=== PATIENT | female | born 1975 | race Caucasian/White ===

== ENCOUNTER → 2016-07-29 | Outpatient (CLI) | payer BC ==
--- NOTE | 2016-07-30 06:35 | US ---
EXAMINATION TYPE: US thyroid st tissue head/neck DATE OF EXAM: 07/29/2016 3:51 PM COMPARISON: 12/21/2014. 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 F/U to previous TECHNIQUE: Multiple sonographic images of the thyroid gland are obtained. FINDINGS: Right Lobe: 5.1 x 1.8 x 2.0 cm Left Lobe: 5.2 x 1.9 x 2.0 cm Isthmus Thickness: 0.6 cm Overall Parenchyma: Markedly heterogeneous. NODULES RIGHT: # of nodules measured on right: 1 1. 1.1 X 0.7 x 0.9 cm echogenic solid nodule at the mid pole with well-defined margins; This nodule is wider than tall and shows intranodular vascularity. Prior size: 1.2 x 1.0 x 1.0 cm LEFT: # of nodules measured on left: 1 1. 1.1 X 0.7 x 1.2 cm echogenic solid nodule at the lower pole with well-defined margins; This nod ule is wider than tall and shows intranodular vascularity. Prior size: 1.2 x 0.6 x 1.2 cm ISTHMUS: # of nodules measured in the isthmus: 0 Bilateral neck scanned, no abnormal lymphadenopathy noted. IMPRESSION: 1. Marked glandular heterogeneity could reflect goiter or diffuse thyroiditis. 2. A stable solid nodule within each lobe measuring up to 1.2 cm on the left and 1.1 cm on the right.
== END | disposition home or self-care (01) ==
LOC: RADUSWWP 15:49
PROVIDERS: ATTEND Internal Medicine
DX: E04.2 Nontoxic multinodular goiter (principal)
CPT/HCPCS: 76536

== ENCOUNTER → 2016-12-10 | Outpatient (CLI) | payer BC | END | disposition home or self-care (01) | LOC: LABWHC1 13:08 | PROVIDERS: ATTEND Physician Assistant | DX: E03.9 Hypothyroidism, unspecified (principal) | CPT/HCPCS: 36415; 84439; 84443 ==

== ENCOUNTER → 2016-12-16 | Outpatient (CLI) | payer BC ==
--- NOTE | 2016-12-16 10:29 | MM ---
Reason for exam: screening (asymptomatic). Baseline mammogram. History: Patient history of other cancer and had first child at age 34. Took hormonal contraceptives beginning at age 41. Physical Findings: Nurse did not find any significant physical abnormalities on exam. MG Screening Mammo w CAD Bilateral CC and MLO view(s) were taken. The breast tissue is heterogeneously dense. This may lower the sensitivity of mammography. There is no discrete abnormality. These results were verbally communicated with the patient and result sheet given to the patient on 12/16/16. ASSESSMENT: Negative, BI-RAD 1 RECOMMENDATION: Routine screening mammogram of both breasts in 1 year.
== END | disposition home or self-care (01) ==
LOC: RADMAMWWP 09:35
PROVIDERS: ATTEND Obstetrics & Gynecology
DX: Z12.31 Encounter for screening mammogram for malignant neoplasm of breast (principal)

== ENCOUNTER → 2017-03-03 | Outpatient (CLI) | payer BC ==
[2017-03-03 16:30] LABS: Basophils # (A) 0.1 k/uL (0-0.2); Basophils % (A) 1 %; CH 29.3; CHCM 33.1; Eosinophils # (A) 0.2 k/uL (0-0.7); Eosinophils % (A) 3 %; HCT 37.7 % (34.0-46.0); HDW 2.63; HGB 12.4 gm/dL (11.4-16.0); Luc # (Auto) 0.13; Luc % (Auto) 2; Lymphocytes # (A) 1.4 k/uL (1.0-4.8); Lymphocytes % (A) 23 %; MCH 29.2 pg (25.0-35.0); MCHC 32.8 g/dL (31.0-37.0); Mean Platelet Volume 7.7; Monocytes # (A) 0.4 k/uL (0-1.0); Monocytes % (A) 6 %; Neutrophils % (A) 65 %; RBC 4.24 m/uL (3.80-5.40); RDW 13.3 % (11.5-15.5); WBC 6.1 k/uL (3.8-10.6); WBC (Perox) 5.82
== END | disposition home or self-care (01) ==
LOC: LABPAT 14:42
PROVIDERS: ATTEND Obstetrics & Gynecology
DX: Z01.812 Encounter for preprocedural laboratory examination (principal); N93.8 Other specified abnormal uterine and vaginal bleeding; N92.0 Excessive and frequent menstruation with regular cycle
CPT/HCPCS: 85025

== ENCOUNTER 2017-03-17 06:29 | Day surgery (SDC) | payer BC ==
[2017-03-12 11:37] VITALS: BMI 36.5
[~2017-03-17 06:29] MED LIST: DEXAMETHASONE SOD PHOSPHATE 10 MG/ML 1 ML VIAL IV ONE; LACTATED RINGERS 1,000 ML IV SCH; MIDAZOLAM 2 MG/2 ML VIAL IV PRN; ONDANSETRON 4 MG/2 ML VIAL IVP ONE; Pre Op ABX Message 1 EACH MISC MISCELLANE ONE; SCOPOLAMINE 1.5MG/72HR PATCH TRANSDERM ONE
[2017-03-17] MEDS ORDERED: LIDOCAINE 1% 20 ML VIAL (10MG/ML) FOR IV START INTRADERMA ONE (07:03)
[2017-03-17] MEDS ORDERED: PROPOFOL 10 MG/ML 20 ML VIAL IV ONE (07:36)
[2017-03-17] MEDS ORDERED: MIDAZOLAM 2 MG/2 ML VIAL ONE (07:36)
[2017-03-17] MEDS ORDERED: fentaNYL (PF) 50 MCG/ML 2 ML AMP ONE (07:36)
[2017-03-17] MEDS ORDERED: LIDOCAINE 1% INJ 10MG/ML (20 ML MDV) ONE (07:36)
[2017-03-17] MEDS ORDERED: KETOROLAC 30 MG/ML 1 ML VIAL ONE (07:36)
[2017-03-17] MEDS ORDERED: IBUPROFEN 600 MG TAB PO PRN (07:42)
[2017-03-17] MEDS ORDERED: METOCLOPRAMIDE 5 MG/ML 2 ML VIAL IVP PRN (07:42)
[2017-03-17] MEDS ORDERED: ONDANSETRON 4 MG/2 ML VIAL IVP PRN (07:42)
[2017-03-17] MEDS ORDERED: diphenhydrAMINE 50 MG/ML 1 ML VIAL IVP PRN (07:42)
[2017-03-17] MEDS ORDERED: SIMETHICONE 80 MG CHEWABLE PO PRN (07:42)
[2017-03-17] MEDS ORDERED: KETOROLAC 30 MG/ML 1 ML VIAL IVP PRN (07:42)
[2017-03-17] MEDS ORDERED: Acetaminophen-Codeine 300-30mg TAB PO PRN ×2 (07:42)
[2017-03-17] MEDS ORDERED: LACTATED RINGERS 1,000 ML IV SCH (07:45)
--- NOTE | 2017-03-17 08:12 | P.OP ---
Date of Procedure: 03/17/17 Preoperative Diagnosis: #1. Dysfunctional uterine bleeding #2. Menorrhagia Postoperative Diagnosis: Same Procedure(s) Performed: #1. Diagnostic hysteroscopy #2. Endometrial curettage #3. NovaSure endometrial ablation Anesthesia: other (Gen. by face mask) Surgeon: Chai Cm Estimated Blood Loss (ml): 5 IV fluids (ml): 400 Urine output (ml): 20 Pathology: other Condition: stable (Endometrial curettings) Disposition: PACU Operative Findings: Preoperative pelvic examination demonstrated a roughly 4-5 week acutely anteverted mobile normal shaped uterus with normal adnexa bilaterally. Intraoperatively, the cervix measured approximately 4 synovators well uterus sounded to 9 cm. Using the hysteroscope, there was noted to be a fair amount of shaggy endometrial tissue in the fundal portion of the uterus. The bilateral tubal ostia were seen as result of the amount of tissue noted, curettage was carried out with the curettings sent to pathology for diagnoses. The settings for the NovaSure tool were a length of 5.0 cm, a width of 4.4 cm, a total power of 121 W, and was followed by a total run time of 78 seconds after which time the base unit read "procedure complete." The postprocedural result appeared to be excellent. The patient is a potential candidate for vaginal hysterectomy should become necessary in the future. Description of Procedure: The patient was prepped and draped in usual fashion after general anesthesia was administered by the anesthesiologist. A weighted speculum was placed and the bladder was drained of approximately 20 mL of clear rafal urine. A single- tooth tenaculum was placed on the anterior lip of the cervix and the cervix and uterus sounded with the measurements as noted above, uterine length of 9 cm and cervical length of 4 cm. Serial dilation was carried out to admit the diagnostic hysteroscope which was placed to the fundus of the uterus. The bilateral tubal ostia were seen but viewing was difficult secondary to blood floating in the fluid as well as a fair amount of shaggy tissue. Once adequate hysteroscopy been carried out, the scope was set aside and further dilation carried out to admit a small sharp curette which was utilized to circumferentially curet the endometrial cavity onto a Telfa placed in the vagina. The specimen was sent to pathology for diagnoses. The NovaSure tool was then placed in the endometrial cavity, opened, and seated well. The settings for the tool were as noted above. The cavity check was attempted and passed without difficulty. The tool was enabled and the run was started. After a total run time of 78 seconds, the in a disengaged and the base unit read "procedure complete." The tool was closed, removed, and discarded. The diagnostic scope was replaced into the endometrial cavity with the excellent result noted above. Allis her mentation was then removed. One tenaculum point was bleeding and was made hemostatic with pressure. Estimated blood loss for the entire case was approximate 5 mL. There were no complications. All sponge , instrument, and needle counts were correct. The patient tolerated the procedure well and proceeded to the recovery room in stable condition.
[2017-03-17 08:22] VITALS: TEMP 96.9
[2017-03-17] MEDS: HYDROmorphone 0.5 MG/0.5 ML SYRINGE IVP PRN ×2 (08:35→08:42)
[2017-03-17] MEDS ORDERED: LACTATED RINGERS 1,000 ML IV ONE (08:54)
[2017-03-17 09:10] VITALS: RESP 18
[2017-03-17 09:40] VITALS: BP 152/94; PULSE 69
== END 2017-03-17 10:07 | disposition home or self-care (01) ==
LOC: OR 06:29
PROVIDERS: ATTEND Obstetrics & Gynecology
DX: N93.8 Other specified abnormal uterine and vaginal bleeding (principal); N92.0 Excessive and frequent menstruation with regular cycle; E06.3 Autoimmune thyroiditis; Z79.3 Long term (current) use of hormonal contraceptives; Z79.899 Other long term (current) drug therapy; Z88.1 Allergy status to other antibiotic agents; Z88.2 Allergy status to sulfonamides
CPT/HCPCS: 81025; 88305; 58563; J2250; J1100; J2405; J2001; J3010; J1885; J2704; J1170

== ENCOUNTER → 2017-09-21 | Outpatient (CLI) | payer BC ==
[2017-09-21 14:23] LABS: T4, Free (Free Thyroxine) 1.04 ng/dL (0.78-2.19)
== END | disposition home or self-care (01) ==
LOC: LABWHC1 12:59
PROVIDERS: ATTEND Internal Medicine
DX: E03.9 Hypothyroidism, unspecified (principal)
CPT/HCPCS: 36415; 84439; 84443; 84481

== ENCOUNTER → 2018-08-24 | Outpatient (CLI) | payer BC ==
--- NOTE | 2018-08-24 17:28 | CONS ---
CONSULTATION REASON FOR CONSULTATION: This is a consultation note for sleep apnea. This is a 43-year-old, obese female patient who is coming in due to concerns of obstructive sleep apnea. Her story however is a bit more complicated than plain sleep apnea. The patient has had issues with chronic anxiety and depression. She has had difficulties in initiating and maintaining sleep. In addition, this was mainly attributed to her increased level of anxiety over the years. The patient had been treating herself with Benadryl for quite some time. Subsequently she was started on Zoloft at a dose of 100 mg p.o. daily which improved her level of anxiety and depression. For now, the patient is averaging a good 6-7 hours of sleep. She thinks that she needs to sleep more and for that reason, she has been going to bed early at around 8:00 pm. She gets out of bed around 7:00 am. Obviously she has difficulties with sleep initiation. She snores and she has been told to quit breathing at night. She has been feeling tired and fatigued and sleepy during the day. A bit restless in lower extremities. Has symptoms of nocturia. Current Gosport Score is at 6. She has gained 20 pounds over the past 1 year. She was referred for a sleep apnea evaluation and treatment. PAST MEDICAL HISTORY: 1. History of chronic anxiety and depression. 2. Hypothyroidism as the patient has had previous history of Vianey's thyroiditis. 3. History of tachycardia improved with the treatment of metoprolol. PAST SURGICAL HISTORY: Includes uterine ablation. DRUG ALLERGIES: Not known. OUTPATIENT MEDICATION LIST: Includes Zoloft 100 mg p.o. daily, levothyroxine 75 mcg p.o. daily, metoprolol 50 mg p.o. daily. SOCIAL HISTORY: Nonsmoker. No history of alcohol. No history of IV drugs. FAMILY HISTORY: Negative for sleep apnea. REVIEW OF SYSTEMS: 12-point review of system was done. Positive findings are mentioned above in the history of present illness. PHYSICAL EXAMINATION: BP is 150/92, pulse 60, respirations 16, temperature 97.7, saturation 96% on room air. Weight is 235, height is 5 feet 3 inches. Neck is 15 inches, Gosport score is 6 and BMI is 40.9. GENERAL APPEARANCE: Calm and comfortable. HEENT: Head is atraumatic, normocephalic. Neck is short, supple. There is crowding of posterior pharynx. There is no goiter or neck mass. LUNGS: Diminished breath sounds. Otherwise clear. HEART: Sounds are regular rate and rhythm. Normal S1, S2. No S3, S4. No murmurs. ABDOMEN: Soft, nontender. No organomegaly. EXTREMITIES: No edema. No cyanosis or clubbing. IMPRESSION: 1. Chronic hypersomnia, consider underlying obstructive sleep apnea. Based on symptoms and anatomic features. 2. History of insomnia probably related to chronic anxiety and depression. Improved with the initiation of Zoloft 100 mg p.o. daily. 3. Symptoms of sleep misconception. 4. Obesity with a BMI of 40.9. 5. Hypothyroidism. 6. History of sinus tachycardia improved with metoprolol. PLAN: Educated the patient about sleep hygiene. During this interview a lot of sleep hygiene issues were identified. The patient was asked to eliminate not to watch TV in her bedroom environment. She has been also having some sleep misconception where she thinks she needs to sleep longer number of hours and she was going to bed earlier. This needs to be eliminated and the patient need to go to sleep whenever she is feeling drowsy and sleepy. Typically would like her to go to bed around 11:00 pm. We will also tackled a lot of other issues related to sleep hygiene. Meanwhile there is still concern of obstructive sleep apnea. We will set up the patient for a screening polysomnogram. Continue taking Zoloft for anxiety and depression which has helped this patient considerably regarding her symptoms of insomnia. Continue Synthroid and thyroid levels are adequate. Will continue to follow. We will review the sleep study once complete and make further recommendations if CPAP therapy is needed in this patient. MMODL / IJN: [id number] /
== END | disposition home or self-care (01) ==
LOC: SLEEP 15:26
PROVIDERS: ATTEND Internal Medicine Critical Care Medicine
DX: G47.10 Hypersomnia, unspecified (principal); R06.83 Snoring; R35.1 Nocturia; F32.9 Major depressive disorder, single episode, unspecified; F41.9 Anxiety disorder, unspecified; E66.9 Obesity, unspecified; R53.83 Other fatigue; E06.3 Autoimmune thyroiditis; E03.9 Hypothyroidism, unspecified; R00.0 Tachycardia, unspecified; Z68.41 Body mass index [BMI] 40.0-44.9, adult; Z79.899 Other long term (current) drug therapy; Z98.890 Other specified postprocedural states
CPT/HCPCS: 99211

== ENCOUNTER → 2018-10-08 | Outpatient (CLI) | payer BC ==
--- NOTE | 2018-10-12 09:17 | MM ---
Reason for exam: screening (asymptomatic). Last mammogram was performed 1 year and 10 months ago. History: Patient history of other cancer and had first child at age 34. Took hormonal contraceptives beginning at age 41. Physical Findings: A clinical breast exam by your physician is recommended on an annual basis and results should be correlated with mammographic findings. MG Screening Mammo w CAD Bilateral CC and MLO view(s) were taken. XCCL view(s) were taken of the right breast. Prior study comparison: December 16, 2016, bilateral MG screening mammo w CAD. The breast tissue is heterogeneously dense. This may lower the sensitivity of mammography. There is no discrete abnormality. No significant changes when compared with prior studies. ASSESSMENT: Negative, BI-RAD 1 RECOMMENDATION: Routine screening mammogram of both breasts in 1 year.
== END ==
LOC: RADMAMWWP 07:52
PROVIDERS: ATTEND Internal Medicine
DX: Z12.31 Encounter for screening mammogram for malignant neoplasm of breast (principal)
CPT/HCPCS: 77067

== ENCOUNTER 2019-08-13 01:17 | Emergency (ER) | payer BC ==
[2019-08-13 01:27] VITALS: RESP 18
[2019-08-13] MEDS ORDERED: ONDANSETRON 4 MG/2 ML VIAL IVP STA (02:05)
[2019-08-13] MEDS ORDERED: SODIUM CHLORIDE 0.9% 1,000 ML IV STA (02:05)
--- NOTE | 2019-08-13 02:50 | ED ---
General Adult HPI - General Source: patient, RN notes reviewed, old records reviewed Mode of arrival: ambulatory Limitations: no limitations <Reece Layton - Last Filed: 08/13/19 18:00> <Neva Cary - Last Filed: 08/16/19 00:07> - General Chief complaint: Abdominal Pain Stated complaint: Pain right lower abdomen Time Seen by Provider: 08/13/19 01:31 - History of Present Illness Initial comments: 44-year-old female patient presents to ED for chief complaint of right lower quadrant pain. Patient was this began approximately 6 PM today. Also reports of nausea without emesis. Patient is status post tubal ligation. Denies any other complaints. Systemic: Pt denies fatigue, fever/chills, rash. Pt denies weakness, night sweats, weight loss. Neuro: Pt denies headache, visual disturbances, syncope or pre-syncope. HEENT: Pt denies ocular discharge or irritation, otalgia, rhinorrhea, pharyng itis or notable lymphadenopathy. Cardiopulmonary: Pt denies chest pain, SOB, heart palpitations, dyspnea on exertion. Abdominal/GI: Pt denies abdominal pain, n/v/d. : Pt denies dysuria, burning w/ urination, frequency/urgency. Denies new onset urinary or bowel incontinence. MSK: Pt denies myalgia, loss of strength or function in extremities. Neuro: Pt denies new onset weakness, paresthesias. (Reece Layton) - Related Data Home Medications Medication Instructions Recorded Confirmed Sertraline [Zoloft] 50 mg PO HS 03/12/17 08/13/19 Cyanocobalamin (Vitamin B-12) 1,000 mcg PO HS 10/02/17 08/13/19 [Vitamin B-12] Levothyroxine Sodium [Synthroid] 75 mcg PO HS 10/02/17 08/13/19 Vitamin D3(Unknown Dose) 4 tab PO HS 10/02/17 08/13/19 Metoprolol Succinate [Toprol XL] 25 mg PO DAILY 08/13/19 08/13/19 Previous Rx's Medication Instructions Recorded Cephalexin [Keflex] 500 mg PO BID #20 cap 08/13/19 Allergies Allergy/AdvReac Type Severity Reaction Status Date / Time Sulfa (Sulfonamide Allergy Rash/Hives Verified 08/13/19 01:27 Antibiotics) Review of Systems ROS Other: All systems not noted in ROS Statement are negative. <Reece Layton - Last Filed: 08/13/19 18:00> ROS Other: All systems not noted in ROS Statement are negative. <Neva Cary - Last Filed: 08/16/19 00:07> ROS Statement: Those systems with pertinent positive or pertinent negative responses have been documented in the HPI. Past Medical History Past Medical History: Hypertension, Supraventricular Tachycardia (SVT), Thyroid Disorder History of Any Multi-Drug Resistant Organisms: None Reported Past Surgical History: Tubal Ligation Past Psychological History: Depression Smoking Status: Never smoker Past Alcohol Use History: Occasional Past Drug Use History: None Reported <Reece Layton - Last Filed: 08/13/19 18:00> General Exam Limitations: no limitations <Reece Layton - Last Filed: 08/13/19 18:00> - General Exam Comments Initial Comments: Constitutional: NAD, AOX3, Pt has pleasant affect. HEENT: NC/AT, trachea midline, neck supple, no lymphadenopathy. Posterior pharynx non erythematous, without exudates. External ears appear normal, without discharge. Mucous membranes moist. Eyes PERRLA, EOM intact. There is no scleral icterus. No pallor noted. Cardiopulmonary: RRR, no murmurs, rubs or gallops, no JVD noted. Lungs CTAB in anterior and posterior bee. No peripheral edema. Abdominal exam: Abdomen soft and non-distended. Abdomen mildly tender to palpation right lower quadrant region. Other areas of abdominal tenderness. No guarding or rigidity.. Bowel sounds active in LLQ. No hepatosplenomegaly. No ecchymosis Neuro: CN II-XII grossly intact. No nuchal rigidity. No raccon eyes, no adler sign, no hemotympanum. No cervical spinal tenderness. MSK: No posterior calf tenderness bilaterally, homans sign negative bilaterally. Posterior tibialis and radial pulse +2 bilaterally. Sensation intact in upper and lower extremities. Full active ROM in upper and lower extremities, 5/5 stregnth. (Reece Layton) Course Vital Signs 08/13/19 08/13/19 01:23 05:29 Temperature 98.2 F 97.9 F Pulse Rate 79 73 Respiratory 18 18 Rate Blood Pressure 143/83 116/86 O2 Sat by Pulse 100 97 Oximetry Medical Decision Making - Lab Data Result diagrams: 08/13/19 03:13 08/13/19 03:13 <Reece Layton - Last Filed: 08/13/19 18:00> - Lab Data Result diagrams: 08/13/19 03:13 08/13/19 03:13 <Neva Cary - Last Filed: 08/16/19 00:07> - Medical Decision Making 44-year-old female patient presents ED chief complaint right lower quadrant abdominal pain. Patient status post tubal ligation. Physical exam is fully mild right lower quadrant tenderness. Laboratory investigations revealed a positive urinary tract infection. CT abdomen and pelvis displayed a large ovarian cyst. Patient signed out to Dr. Cary pending ultrasound. (Reece Layton) The patient was signed out to me pending ultrasound. Ultrasound does demonstrate a right-sided ovarian cyst, measuring 3.8 mm in size. Concern for hemorrhagic cyst. No signs of ovarian torsion. I discussed the laboratory studies and imaging results with the patient. She states her pain is improved at this time. She will be discharged home and is told to take Motrin and Tylenol for pain. She'll be given a prescription for Keflex for clinical pyelonephritis. Informed her that she needs to follow up with her OB and have a repeat ultrasound performed to evaluate her cyst. If she has any new or worsen ing symptoms she should return to the emergency room. (Neva Cary) - Lab Data Lab Results 08/13/19 08/13/19 08/13/19 Range/Units 03:13 03:13 03:13 WBC 7.9 (3.8-10.6) k/uL RBC 4.49 (3.80-5.40) m/uL Hgb 13.8 (11.4-16.0) gm/dL Hct 41.4 (34.0-46.0) % MCV 92.0 (80.0-100.0) fL MCH 30.6 (25.0-35.0) pg MCHC 33.3 (31.0-37.0) g/dL RDW 11.8 (11.5-15.5) % Plt Count 228 (150-450) k/uL Neutrophils % 68 % Lymphocytes % 22 % Monocytes % 5 % Eosinophils % 3 % Basophils % 0 % Neutrophils # 5.4 (1.3-7.7) k/uL Lymphocytes # 1.8 (1.0-4.8) k/uL Monocytes # 0.4 (0-1.0) k/uL Eosinophils # 0.2 (0-0.7) k/uL Basophils # 0.0 (0-0.2) k/uL Sodium 137 (137-145) mmol/L Potassium 4.1 (3.5-5.1) mmol/L Chloride 103 (98-107) mmol/L Carbon Dioxide 24 (22-30) mmol/L Anion Gap 10 mmol/L BUN 15 (7-17) mg/dL Creatinine 0.80 (0.52-1.04) mg/dL Est GFR (CKD-EPI)AfAm >90 (>60 ml/min/1.73 sqM) Est GFR (CKD-EPI)NonAf >90 (>60 ml/min/1.73 sqM) Glucose 93 (74-99) mg/dL Plasma Lactic Acid Omega 1.1 (0.7-2.0) mmol/L Calcium 9.6 (8.4-10.2) mg/dL Total Bilirubin 0.5 (0.2-1.3) mg/dL AST 24 (14-36) U/L ALT 18 (4-34) U/L Alkaline Phosphatase 62 (38-126) U/L Total Protein 7.3 (6.3-8.2) g/dL Albumin 4.3 (3.5-5.0) g/dL Lipase 177 (23-300) U/L Urine Color Urine Appearance (Clear) Urine pH (5.0-8.0) Ur Specific [place] (1.001-1.035) Urine Protein (Negative) Urine Glucose (UA) (Negative) Urine Ketones (Negative) Urine Blood (Negative) Urine Nitrite (Negative) Urine Bilirubin (Negative) Urine Urobilinogen (<2.0) mg/dL Ur Leukocyte Esterase (Negative) Urine RBC (0-5) /hpf Urine WBC (0-5) /hpf Ur Squamous Epith Cells (0-4) /hpf Urine Bacteria (None) /hpf Urine Mucus (None) /hpf 08/13/19 Range/Units 03:13 WBC (3.8-10.6) k/uL RBC (3.80-5.40) m/uL Hgb (11.4-16.0) gm/dL Hct (34.0-46.0) % MCV (80.0-100.0) fL MCH (25.0-35.0) pg MCHC (31.0-37.0) g/dL RDW (11.5-15.5) % Plt Count (150-450) k/uL Neutrophils % % Lymphocytes % % Monocytes % % Eosinophils % % Basophils % % Neutrophils # (1.3-7.7) k/uL Lymphocytes # (1.0-4.8) k/uL Monocytes # (0-1.0) k/uL Eosinophils # (0-0.7) k/uL Basophils # (0-0.2) k/uL Sodium (137-145) mmol/L Potassium (3.5-5.1) mmol/L Chloride (98-107) mmol/L Carbon Dioxide (22-30) mmol/L Anion Gap mmol/L BUN (7-17) mg/dL Creatinine (0.52-1.04) mg/dL Est GFR (CKD-EPI)AfAm (>60 ml/min/1.73 sqM) Est GFR (CKD-EPI)NonAf (>60 ml/min/1.73 sqM) Glucose (74-99) mg/dL Plasma Lactic Acid Omega (0.7-2.0) mmol/L Calcium (8.4-10.2) mg/dL Total Bilirubin (0.2-1.3) mg/dL AST (14-36) U/L ALT (4-34) U/L Alkaline Phosphatase (38-126) U/L Total Protein (6.3-8.2) g/dL Albumin (3.5-5.0) g/dL Lipase (23-300) U/L Urine Color Dark Brown Urine Appearance Cloudy H (Clear) Urine pH 5.5 (5.0-8.0) Ur Specific [place] 1.021 (1.001-1.035) Urine Protein Negative (Negative) Urine Glucose (UA) Negative (Negative) Urine Ketones Negative (Negative) Urine Blood Negative (Negative) Urine Nitrite Positive H (Negative) Urine Bilirubin 1+ H (Negative) Urine Urobilinogen 3.0 (<2.0) mg/dL Ur Leukocyte Esterase Large H (Negative) Urine RBC 4 (0-5) /hpf Urine WBC 45 H (0-5) /hpf Ur Squamous Epith Cells 17 H (0-4) /hpf Urine Bacteria Rare H (None) /hpf Urine Mucus Rare H (None) /hpf Disposition <Reece Layton - Last Filed: 08/13/19 18:00> Is patient prescribed a controlled substance at d/c from ED?: No Time of Disposition: 05:15 <Neva Cary - Last Filed: 08/16/19 00:07> Clinical Impression: Hemorrhagic cyst of right ovary, UTI (urinary tract infection) Disposition: HOME SELF-CARE Condition: Stable Instructions (If sedation given, give patient instructions): Ovarian Cyst (ED), Urinary Tract Infection in Women (ED) Additional Instructions: Please follow up with your primary care doctor in 2-4 days. I recommend a follow-up with her AUTOM[employer] in 2 months to have a repeat ultrasound. Return to the emergency room for any new or worsening symptoms Prescriptions: Cephalexin [Keflex] 500 mg PO BID #20 cap Referrals: Dada Rivas MD [Primary Care Provider] - 1-2 days
[2019-08-13 03:23] LABS: Basophils % (A) 0 %; Eosinophils # (A) 0.2 k/uL (0-0.7); Eosinophils % (A) 3 %; HCT 41.4 % (34.0-46.0); HGB 13.8 gm/dL (11.4-16.0); Lymphocytes # (A) 1.8 k/uL (1.0-4.8); Lymphocytes % (A) 22 %; MCH 30.6 pg (25.0-35.0); MCHC 33.3 g/dL (31.0-37.0); Mean Platelet Volume 7.3; Monocytes # (A) 0.4 k/uL (0-1.0); Monocytes % (A) 5 %; Neutrophils # (A) 5.4 k/uL (1.3-7.7); Neutrophils % (A) 68 %; Platelet Count 228 k/uL (150-450); RBC 4.49 m/uL (3.80-5.40); RDW 11.8 % (11.5-15.5); WBC 7.9 k/uL (3.8-10.6)
[2019-08-13 03:27] LABS: Appearance,Urine Cloudy (Clear); Bacteria,Urine Rare /hpf; Bilirubin,Urine 1+ (Negative); Blood,Urine Negative (Negative); Color,Urine Dark Brown; Glucose,Urine (UA) Negative (Negative); Ketones,Urine Negative (Negative); Leukocyte Esterase,Urine Large (Negative); Mucus,Urine Rare /hpf; Nitrite,Urine Positive (Negative); PH, Urine 5.5 (5.0-8.0); Protein,Urine Negative (Negative); RBC,Urine 4 /hpf (0-5); Specific Gravity,Urine 1.021 (1.001-1.035); Squamous Epithelial Cell,Urine 17 /hpf (0-4); WBC,Urine 45 /hpf (0-5)
[2019-08-13 03:36] LABS: ALT 18 U/L (4-34); AST 24 U/L (14-36); African American GFR (CKD) >90 (>60 ml/min/1.73 sqM); Albumin 4.3 g/dL (3.5-5.0); Alkaline Phosphatase 62 U/L (38-126); Anion Gap 10 mmol/L; Blood Urea Nitrogen 15 mg/dL (7-17); Calcium 9.6 mg/dL (8.4-10.2); Carbon Dioxide 24 mmol/L (22-30); Chloride 103 mmol/L (98-107); Glucose 93 mg/dL (74-99); Non-African American GFR(CKD) >90 (>60 ml/min/1.73 sqM); Potassium 4.1 mmol/L (3.5-5.1); Sodium 137 mmol/L (137-145); Total Bilirubin 0.5 mg/dL (0.2-1.3); Total Protein 7.3 g/dL (6.3-8.2)
--- NOTE | 2019-08-13 03:36 | CT ---
EXAMINATION TYPE: CT abdomen pelvis w con DATE OF EXAM: 08/13/2019 COMPARISON: None HISTORY: RLQ pain CT DLP: 1869.8 mGycm Automated exposure control for dose reduction was used. CONTRAST: Performed with IV Contrast, patient injected with 100 mL of Isovue 300. Multiple axial sections were obtained from the diaphragm to the floor the pelvis with intravenous con trast. The contrast was Isovue 100 mL. Lung bases are clear. There is no pleural effusion. There is mild subsegmental atelectasis right post erior lung base. Liver shows no focal defect. Bile ducts are not dilated. Liver spleen pancreas appea r normal. There are multiple calcified gallstones. Bile ducts are not dilated. There is no adrenal mass. Kidneys show satisfactory contrast opacification. There is no hydronephrosi s. Ureters are not dilated. There is normal excretion on the delayed images. There is no retroperiton eal adenopathy. Appendix is inferior and appears normal. There is no free fluid in the pelvis. Bladde r distends smoothly. There is no inguinal hernia. Uterus is anteverted. There is 4.4 cm cyst in the r ight adnexum consistent with ovarian cyst. There are clips from tubal ligation. There is no mesenteric edema. There is no ascites or free air. There is no sign of a bowel obstructio n. Lumbar vertebra have normal spacing and alignment. Posterior elements are intact. There is no comp ression fracture. Bony pelvis is intact. IMPRESSION: Normal appendix. Large cyst on the right ovary. Cholelithiasis.
[2019-08-13] MEDS ORDERED: cefTRIAXone IN SWFI 1,000 MG/10 ML SYRINGE IVP STA (03:42)
[2019-08-13] MEDS ORDERED: CEPHALEXIN 500MG STARTER PACK 4 CAP BTL PO STA (04:18)
--- NOTE | 2019-08-13 04:48 | US ---
EXAMINATION TYPE: US pelvic complete DATE OF EXAM: 08/13/2019 COMPARISON: NONE CLINICAL HISTORY: right adnexal pain large cyst. Right ovarian cyst seen on CT, also current UTI TECHNIQUE: TA. Transabdominal sonographic images of the pelvis were acquired. patient asked if we could try TA approach due to feeling of full bladder and pain. Date of LMP: 07/24/19 EXAM MEASUREMENTS: Uterus: 9.5 x 4.2 x 4.3 cm Endometrial Stripe: 0.5 cm Right Ovary: 3.6 x 3.8 x 3.6 cm Left Ovary: 2.2 x 1.8 x 1.7 cm 1. Uterus: Anteverted wnl 2. Endometrium: wnl 3. Right Ovary: appearance of a 3.8cm hemorrhagic cyst 4. Left Ovary: wnl Spectral, color and waveform doppler imaging shows good arterial and venous flow within the right o vary; there is no evidence for ovarian torsion. 5. Bilateral Adnexa: wnl 6. Posterior cul-de-sac: wnl IMPRESSION: Echogenic area with posterior enhancement consistent with complex cyst on the right ovary could be a hemorrhagic cyst. No evidence of ovarian torsion. Normal uterus.
[2019-08-13 05:30] VITALS: BP 116/86; PULSE 73; TEMP 97.9
== END 2019-08-13 05:30 | disposition home or self-care (01) ==
LOC: EC 01:17
DX: N39.0 Urinary tract infection, site not specified (principal); N83.201 Unspecified ovarian cyst, right side; E07.9 Disorder of thyroid, unspecified; I10 Essential (primary) hypertension; F32.9 Major depressive disorder, single episode, unspecified; Z79.890 Hormone replacement therapy; Z79.899 Other long term (current) drug therapy; Z88.2 Allergy status to sulfonamides
CPT/HCPCS: 36415; 80053; 83605; 83690; 85025; 81001; 87086; 93976; 76856; 74177; 99284; 96374; 96375; 96361 ×2; J2405; J0696; Q9967

== ENCOUNTER → 2019-08-17 | Outpatient (CLI) | payer BC ==
[2019-08-17 18:20] LABS: Hemoglobin A1C 4.9 % (4.0-6.0)
== END | disposition home or self-care (01) ==
LOC: LABWHC1 11:43
PROVIDERS: ATTEND Internal Medicine Endocrinology, Diabetes & Metabolism
DX: E03.8 Other specified hypothyroidism (principal); E55.9 Vitamin D deficiency, unspecified; E66.01 Morbid (severe) obesity due to excess calories; Z83.3 Family history of diabetes mellitus
CPT/HCPCS: 36415; 82306; 83036; 84443

== ENCOUNTER → 2019-08-23 | Outpatient (CLI) | payer BC ==
--- NOTE | 2019-08-24 07:32 | US ---
EXAMINATION TYPE: US thyroid st tissue head/neck DATE OF EXAM: 08/23/2019 COMPARISON: 07/29/2016 CLINICAL HISTORY: E04.2. GLAND SIZE: Right Lobe: 5.1 x 1.6 x 1.9 cm Overall Parenchyma: heterogenous Left Lobe: 4.6 x 2.0 x 1.5 cm Overall Parenchyma: heterogeneous Isthmus Thickness: 0.5 cm NODULES RIGHT: # of nodules measured on right: 1 1. 1.0 X 0.6 x 1.0 cm echogenic solid nodule at the mid pole with well-defined margins; . This nod ule is wider than tall and shows intranodular vascularity. Prior size: 1.1 x 0.7 x 0.9 cm LEFT: # of nodules measured on left: 1 1. 0.9 X 0.9 x 1.1 cm echogenic solid nodule at the lower pole with well-defined margins; . This n odule is wider than tall and shows intranodular vascularity. Prior size: 1.1 x 0.7 x 1.2 cm ISTHMUS: # of nodules measured in the isthmus: 0 Bilateral neck scanned, no evidence of lymphadenopathy. Gland is diffusely heterogeneous without normal tissue seen. Senior Product Engineer cannot be certain that the s edgar nodules are being measured as previous due to extensive heterogenous tissue. IMPRESSION: 1. The thyroid gland is diffusely heterogenous and the nodule seen on the prior exam are not definiti vely mean nodule seen on today's examination. However nodules in a similar location demonstrate no si gnificant interval growth. 2. Diffuse heterogeneity of the thyroid gland, consider thyroiditis.
== END | disposition home or self-care (01) ==
LOC: RADUSWWP 16:51
PROVIDERS: ATTEND Internal Medicine Endocrinology, Diabetes & Metabolism
DX: E04.1 Nontoxic single thyroid nodule (principal)
CPT/HCPCS: 76536

== ENCOUNTER 2019-11-09 15:57 | Emergency (ER) | payer BC ==
[2019-11-09] MEDS ORDERED: SODIUM CHLORIDE 0.9% 500 ML 500 ML IV STA (16:07)
[2019-11-09 16:13] VITALS: TEMP 98.2
--- NOTE | 2019-11-09 16:14 | ED ---
General Adult HPI - General Chief complaint: Arrhythmia/Palpitations Stated complaint: SVT Time Seen by Provider: 11/09/19 15:57 Source: patient, RN notes reviewed, old records reviewed Mode of arrival: EMS - History of Present Illness Initial comments: This is a 44-year-old female presents emergency Department with a past medical history of SVT. Patient states it happened once 10 years ago and once about a year ago. Patient states today she was just going about her daily routine and all of a sudden she can feel her heart racing was a little lightheaded and so EMS was called. When EMS arrived the patient's at 1 80 bpm and SVT. EMS administered adenosine and converted the patient immediately. Patient states she's not been drinking any more caffeine than normal. Patient denies any drug use. Patient denies any recent fever chills or cough per patient denies being ill lately patient denies being dehydrated. - Related Data Home Medications Medication Instructions Recorded Confirmed Sertraline [Zoloft] 50 mg PO HS 03/12/17 08/13/19 Cyanocobalamin (Vitamin B-12) 1,000 mcg PO HS 10/02/17 08/13/19 [Vitamin B-12] Levothyroxine Sodium [Synthroid] 75 mcg PO HS 10/02/17 08/13/19 Vitamin D3(Unknown Dose) 4 tab PO HS 10/02/17 08/13/19 Metoprolol Succinate [Toprol XL] 25 mg PO DAILY 08/13/19 08/13/19 Previous Rx's Medication Instructions Recorded Cephalexin [Keflex] 500 mg PO BID #20 cap 08/13/19 Allergies Allergy/AdvReac Type Severity Reaction Status Date / Time Sulfa (Sulfonamide Allergy Rash/Hives Verified 08/13/19 01:27 Antibiotics) Review of Systems ROS Statement: Those systems with pertinent positive or pertinent negative responses have been documented in the HPI. ROS Other: All systems not noted in ROS Statement are negative. Past Medical History Past Medical History: Hypertension, Supraventricular Tachycardia (SVT), Thyroid Disorder History of Any Multi-Drug Resistant Organisms: None Reported Past Surgical History: Tubal Ligation Past Psychological History: Depression Smoking Status: Never smoker Past Alcohol Use History: Occasional Past Drug Use History: None Reported General Exam - General Exam Comments Initial Comments: GENERAL: Patient is well-developed and well-nourished. Patient is nontoxic and well- hydrated and is in no acute distress. ENT: Neck is soft and supple. No significant lymphadenopathy is noted. Oropharynx is clear. Moist mucous membranes. Neck has full range of motion without eliciting any pain. EYES: The sclera were anicteric and conjunctiva were pink and moist. Extraocular movements were intact and pupils were equal round and reactive to light. Eyelid s were unremarkable. PULMONARY: Unlabored respirations. Good breath sounds bilaterally. No audible rales rhonchi or wheezing was noted. CARDIOVASCULAR: There is a regular rate and rhythm without any murmurs gallops or rubs. ABDOMEN: Soft and nontender with normal bowel sounds. SKIN: Skin is clear with no lesions or rashes and otherwise unremarkable. NEUROLOGIC: Patient is alert and oriented x3. Cranial nerves II through XII are grossly intact. Motor and sensory are also intact. Normal speech, volume and content. Symmetrical smile. MUSCULOSKELETAL: Normal extremities with adequate strength and full range of motion. LYMPHATICS: No significant lymphadenopathy is noted PSYCHIATRIC: Normal psychiatric evaluation. Course Vital Signs 11/09/19 16:11 Temperature 98.2 F Pulse Rate 95 Respiratory 18 Rate Blood Pressure 129/86 O2 Sat by Pulse 98 Oximetry Medical Decision Making - Medical Decision Making EKG shows normal sinus rhythm at 92 bpm IA interval 168 QRS is 92 QT interval 364 QTC is 450. Patient's EKG shows no ST segment elevation or depression. - Lab Data Result diagrams: 11/09/19 16:09 11/09/19 16:09 Lab Results 11/09/19 11/09/19 11/09/19 Range/Units 16:09 16:09 16:09 WBC 6.5 (3.8-10.6) k/uL RBC 4.72 (3.80-5.40) m/uL Hgb 14.3 (11.4-16.0) gm/dL Hct 44.7 (34.0-46.0) % MCV 94.7 (80.0-100.0) fL MCH 30.3 (25.0-35.0) pg MCHC 32.0 (31.0-37.0) g/dL RDW 12.2 (11.5-15.5) % Plt Count 236 (150-450) k/uL Neutrophils % 66 % Lymphocytes % 24 % Monocytes % 4 % Eosinophils % 3 % Basophils % 1 % Neutrophils # 4.3 (1.3-7.7) k/uL Lymphocytes # 1.6 (1.0-4.8) k/uL Monocytes # 0.3 (0-1.0) k/uL Eosinophils # 0.2 (0-0.7) k/uL Basophils # 0.1 (0-0.2) k/uL PT 10.4 (9.0-12.0) sec INR 1.0 (<1.2) APTT 23.2 (22.0-30.0) sec Sodium (137-145) mmol/L Potassium (3.5-5.1) mmol/L Chloride (98-107) mmol/L Carbon Dioxide (22-30) mmol/L Anion Gap mmol/L BUN (7-17) mg/dL Creatinine (0.52-1.04) mg/dL Est GFR (CKD-EPI)AfAm (>60 ml/min/1.73 sqM) Est GFR (CKD-EPI)NonAf (>60 ml/min/1.73 sqM) Glucose (74-99) mg/dL Calcium (8.4-10.2) mg/dL Magnesium (1.6-2.3) mg/dL Total Bilirubin (0.2-1.3) mg/dL AST (14-36) U/L ALT (4-34) U/L Alkaline Phosphatase (38-126) U/L Troponin I (0.000-0.034) ng/mL Total Protein (6.3-8.2) g/dL Albumin (3.5-5.0) g/dL TSH (0.465-4.680) mIU/L Urine Opiates Screen Not Detected (NotDetected) Ur Oxycodone Screen Not Detected (NotDetected) Urine Methadone Screen Not Detected (NotDetected) Ur Propoxyphene Screen Not Detected (NotDetected) Ur Barbiturates Screen Not Detected (NotDetected) U Tricyclic Antidepress Not Detected (NotDetected) Ur Phencyclidine Scrn Not Detected (NotDetected) Ur Amphetamines Screen Not Detected (NotDetected) U Methamphetamines Scrn Not Detected (NotDetected) U Benzodiazepines Scrn Not Detected (NotDetected) Urine Cocaine Screen Not Detected (NotDetected) U Marijuana (THC) Screen Not Detected (NotDetected) 11/09/19 11/09/19 Range/Units 16:09 16:09 WBC (3.8-10.6) k/uL RBC (3.80-5.40) m/uL Hgb (11.4-16.0) gm/dL Hct (34.0-46.0) % MCV (80.0-100.0) fL MCH (25.0-35.0) pg MCHC (31.0-37.0) g/dL RDW (11.5-15.5) % Plt Count (150-450) k/uL Neutrophils % % Lymphocytes % % Monocytes % % Eosinophils % % Basophils % % Neutrophils # (1.3-7.7) k/uL Lymphocytes # (1.0-4.8) k/uL Monocytes # (0-1.0) k/uL Eosinophils # (0-0.7) k/uL Basophils # (0-0.2) k/uL PT (9.0-12.0) sec INR (<1.2) APTT (22.0-30.0) sec Sodium 139 (137-145) mmol/L Potassium 3.7 (3.5-5.1) mmol/L Chloride 106 (98-107) mmol/L Carbon Dioxide 24 (22-30) mmol/L Anion Gap 9 mmol/L BUN 13 (7-17) mg/dL Creatinine 0.85 (0.52-1.04) mg/dL Est GFR (CKD-EPI)AfAm >90 (>60 ml/min/1.73 sqM) Est GFR (CKD-EPI)NonAf 85 (>60 ml/min/1.73 sqM) Glucose 108 H (74-99) mg/dL Calcium 9.1 (8.4-10.2) mg/dL Magnesium 2.1 (1.6-2.3) mg/dL Total Bilirubin 0.4 (0.2-1.3) mg/dL AST 27 (14-36) U/L ALT 21 (4-34) U/L Alkaline Phosphatase 66 (38-126) U/L Troponin I <0.012 (0.000-0.034) ng/mL Total Protein 7.8 (6.3-8.2) g/dL Albumin 4.6 (3.5-5.0) g/dL TSH 2.070 (0.465-4.680) mIU/L Urine Opiates Screen (NotDetected) Ur Oxycodone Screen (NotDetected) Urine Methadone Screen (NotDetected) Ur Propoxyphene Screen (NotDetected) Ur Barbiturates Screen (NotDetected) U Tricyclic Antidepress (NotDetected) Ur Phencyclidine Scrn (NotDetected) Ur Amphetamines Screen (NotDetected) U Methamphetamines Scrn (NotDetected) U Benzodiazepines Scrn (NotDetected) Urine Cocaine Screen (NotDetected) U Marijuana (THC) Screen (NotDetected) Disposition Clinical Impression: Supraventricular tachycardia Disposition: HOME SELF-CARE Condition: Good Instructions (If sedation given, give patient instructions): Supraventricular Tachycardia (ED) Is patient prescribed a controlled substance at d/c from ED?: No Referrals: Dada Rivas MD [Primary Care Provider] - 1-2 days Ole Lianres MD [STAFF PHYSICIAN] - 1-2 days Time of Disposition: 17:07
[2019-11-09 16:20] LABS: Basophils # (A) 0.1 k/uL (0-0.2); Basophils % (A) 1 %; Eosinophils # (A) 0.2 k/uL (0-0.7); Eosinophils % (A) 3 %; HCT 44.7 % (34.0-46.0); HGB 14.3 gm/dL (11.4-16.0); Lymphocytes # (A) 1.6 k/uL (1.0-4.8); Lymphocytes % (A) 24 %; MCH 30.3 pg (25.0-35.0); MCV 94.7 fL (80.0-100.0); Mean Platelet Volume 7.4; Monocytes # (A) 0.3 k/uL (0-1.0); Monocytes % (A) 4 %; Neutrophils # (A) 4.3 k/uL (1.3-7.7); Neutrophils % (A) 66 %; Platelet Count 236 k/uL (150-450); RBC 4.72 m/uL (3.80-5.40); RDW 12.2 % (11.5-15.5); WBC 6.5 k/uL (3.8-10.6)
[2019-11-09 16:30] LABS: Partial Thromboplastin Time 23.2 sec (22.0-30.0); Prothrombin Time 10.4 sec (9.0-12.0)
[2019-11-09 16:32] LABS: Amphetamine Screen,Urine Not Detected (NotDetected); Barbiturate Screen,Urine Not Detected (NotDetected); Benzodiazepines Screen,Urine Not Detected (NotDetected); Cocaine Screen,Urine Not Detected (NotDetected); Methadone Screen, Urine Not Detected (NotDetected); Opiate Screen,Urine Not Detected (NotDetected); Oxycodone Screen, Urine Not Detected (NotDetected); Phencyclidine Screen,Urine Not Detected (NotDetected); Tricyclic Antidepressant,Urine Not Detected (NotDetected); Urn Cannabinoid Scrn Not Detected (NotDetected)
[2019-11-09 16:34] LABS: ALT 21 U/L (4-34); AST 27 U/L (14-36); African American GFR (CKD) >90 (>60 ml/min/1.73 sqM); Albumin 4.6 g/dL (3.5-5.0); Alkaline Phosphatase 66 U/L (38-126); Anion Gap 9 mmol/L; Blood Urea Nitrogen 13 mg/dL (7-17); Calcium 9.1 mg/dL (8.4-10.2); Carbon Dioxide 24 mmol/L (22-30); Chloride 106 mmol/L (98-107); Glucose 108 mg/dL (74-99); Magnesium 2.1 mg/dL (1.6-2.3); Non-African American GFR(CKD) 85 (>60 ml/min/1.73 sqM); Potassium 3.7 mmol/L (3.5-5.1); Sodium 139 mmol/L (137-145); Total Bilirubin 0.4 mg/dL (0.2-1.3); Total Protein 7.8 g/dL (6.3-8.2)
--- NOTE | 2019-11-09 16:50 | XR ---
EXAMINATION TYPE: XR chest 2V DATE OF EXAM: 11/09/2019 COMPARISON: NONE HISTORY: Dysrhythmia. TECHNIQUE: Frontal and lateral views of the chest are obtained. FINDINGS: Overlying EKG leads. There is no focal air space opacity, pleural effusion, or pneumothorax seen. The cardiac silhouette size is within normal limits. The osseous structures are intact. IMPRESSION: No acute cardiopulmonary process.
[2019-11-09 17:14] VITALS: BP 137/86; PULSE 93; RESP 20
== END 2019-11-09 17:19 | disposition home or self-care (01) ==
LOC: EC 15:57
DX: I47.1 Supraventricular tachycardia (principal); I10 Essential (primary) hypertension; E07.9 Disorder of thyroid, unspecified; F32.9 Major depressive disorder, single episode, unspecified; Z79.890 Hormone replacement therapy; Z79.899 Other long term (current) drug therapy; Z88.2 Allergy status to sulfonamides
CPT/HCPCS: 36415; 71046; 80053; 80306; 83735; 84443; 84484; 85025; 85610; 85730; 93005; 99285

== ENCOUNTER → 2019-12-01 | Outpatient (CLI) | payer BC | END | disposition home or self-care (01) | LOC: LABWHC1 11:33 | PROVIDERS: ATTEND Internal Medicine Endocrinology, Diabetes & Metabolism | DX: E03.8 Other specified hypothyroidism (principal) | CPT/HCPCS: 36415; 84443 ==

== ENCOUNTER → 2020-07-25 | Outpatient (CLI) | payer BC | END | disposition home or self-care (01) | LOC: LABWHC1 13:00 | PROVIDERS: ATTEND Internal Medicine Endocrinology, Diabetes & Metabolism | DX: E55.9 Vitamin D deficiency, unspecified (principal); E03.8 Other specified hypothyroidism; E66.01 Morbid (severe) obesity due to excess calories | CPT/HCPCS: 36415; 82024; 82306; 82533; 84443 ==

== ENCOUNTER 2020-09-03 08:45 | Emergency (ER) | payer BC ==
[2020-09-03 09:13] LABS: Basophils # (A) 0.1 k/uL (0-0.2); Basophils % (A) 1 %; Eosinophils # (A) 0.2 k/uL (0-0.7); Eosinophils % (A) 3 %; HCT 43.8 % (34.0-46.0); HGB 14.8 gm/dL (11.4-16.0); Lymphocytes # (A) 1.6 k/uL (1.0-4.8); Lymphocytes % (A) 24 %; MCH 31.4 pg (25.0-35.0); MCHC 33.7 g/dL (31.0-37.0); MCV 92.9 fL (80.0-100.0); Mean Platelet Volume 7.3; Monocytes # (A) 0.3 k/uL (0-1.0); Monocytes % (A) 4 %; Neutrophils # (A) 4.5 k/uL (1.3-7.7); Neutrophils % (A) 67 %; Platelet Count 232 k/uL (150-450); RBC 4.72 m/uL (3.80-5.40); RDW 11.8 % (11.5-15.5); WBC 6.7 k/uL (3.8-10.6)
[2020-09-03 09:25] LABS: ALT 17 U/L (4-34); AST 23 U/L (14-36); African American GFR (CKD) >90 (>60 ml/min/1.73 sqM); Albumin 4.4 g/dL (3.5-5.0); Alkaline Phosphatase 68 U/L (38-126); Anion Gap 11 mmol/L; Blood Urea Nitrogen 13 mg/dL (7-17); Calcium 9.4 mg/dL (8.4-10.2); Carbon Dioxide 22 mmol/L (22-30); Chloride 107 mmol/L (98-107); Glucose 108 mg/dL (74-99); Non-African American GFR(CKD) 81 (>60 ml/min/1.73 sqM); Potassium 3.9 mmol/L (3.5-5.1); Sodium 140 mmol/L (137-145); Total Bilirubin 0.6 mg/dL (0.2-1.3); Total Protein 7.5 g/dL (6.3-8.2)
[2020-09-03 09:29] LABS: Partial Thromboplastin Time 28.2 sec (22.0-30.0); Prothrombin Time 10.8 sec (9.0-12.0)
[2020-09-03 09:41] LABS: HCG,Qualitative Serum Not Detected
--- NOTE | 2020-09-03 10:17 | ED ---
Arrhythmia/Palpitations HPI - General Chief Complaint: Arrhythmia/Palpitations Stated Complaint: heart concerns Source: patient Mode of arrival: ambulatory Limitations: no limitations - History of Present Illness Initial Comments: Arun is a 45-year-old female with past nuchal history of SVT who presents emergency Department with reported palpitations. States that she had a coughing fit while in the shower around 8 AM and began feeling palpitations. In terms were similar to when she had SVT in the past. States this is her fourth episode. Last episode was one year ago. After some on. States that she has never had an ablation. Is on metoprolol and states she's been taking her medications as directed. She denies any chest pain. Admits to mild shortness of breath. Denies any excess caffeine intake. No recent fevers, chills or illnesses. No concern for . No other alleviating, precipitating or modifying factors - Related Data Home Medications Medication Instructions Recorded Confirmed Sertraline [Zoloft] 100 mg PO DAILY@0800 11/09/19 09/03/20 Levothyroxine Sodium [Synthroid] 88 mcg PO DAILY 09/03/20 09/03/20 Metoprolol Tartrate [Lopressor] 25 mg PO HS 09/03/20 09/03/20 Allergies Allergy/AdvReac Type Severity Reaction Status Date / Time Sulfa (Sulfonamide Allergy Rash/Hives Verified 09/03/20 09:36 Antibiotics) Review of Systems ROS Statement: Those systems with pertinent positive or pertinent negative responses have been documented in the HPI. ROS Other: All systems not noted in ROS Statement are negative. Past Medical History Past Medical History: Hypertension, Supraventricular Tachycardia (SVT), Thyroid Disorder History of Any Multi-Drug Resistant Organisms: None Reported Past Surgical History: Tubal Ligation Past Psychological History: Depression Past Alcohol Use History: Occasional Past Drug Use History: None Reported General Exam Limitations: no limitations Course Vital Signs 09/03/20 09/03/20 09/03/20 08:48 09:08 09:45 Pulse Rate 188 H 84 86 Respiratory 18 20 16 Rate Blood Pressure 124/88 146/99 127/85 O2 Sat by Pulse 98 98 100 Oximetry 09/03/20 10:44 Pulse Rate 80 Respiratory 20 Rate Blood Pressure 130/90 O2 Sat by Pulse 99 Oximetry EKG Findings - EKG Comments: EKG Findings:: TEG conducted at 854 demonstrates a supraventricular tachycardia with a rate of 193. QRS 84. QTC of 451. No acute ST segment elevations. No signs of WPW. Repeat EKG done at an O2 demonstrates sinus tachycardia with a ventricular rate of 108. MO interval 172. QRS 86. QTC of 423. No acute ST segment elevations Medical Decision Making - Medical Decision Making On arrival patient is probably placed in the trauma bay 1. A thorough history and physical exam was performed. Patient is hooked up to continuous pulse ox and cardiac monitoring. 12-lead EKG is performed which demonstrates SVT. We attempted vagal maneuvers and modified vagal maneuvers. Patient does not convert. She is placed on the pads and given 6 g of adenosine with conversion to normal sinus rhythm. Laboratory says her conducted and reviewed. Results are discussed the patient. She is watched for approximately 2 hours and does not convert back to SVT. Patient is to follow-up with her primary care doctor 4 days. 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 Continue taking her medications as directed. Return to the emergency room for any new or worsening symptoms. Patient was discharged home in stable condition - Lab Data Result diagrams: 09/03/20 09:07 09/03/20 09:07 Lab Results 09/03/20 09/03/20 09/03/20 Range/Units 09:07 09:07 09:07 WBC 6.7 (3.8-10.6) k/uL RBC 4.72 (3.80-5.40) m/uL Hgb 14.8 (11.4-16.0) gm/dL Hct 43.8 (34.0-46.0) % MCV 92.9 (80.0-100.0) fL MCH 31.4 (25.0-35.0) pg MCHC 33.7 (31.0-37.0) g/dL RDW 11.8 (11.5-15.5) % Plt Count 232 (150-450) k/uL MPV 7.3 Neutrophils % 67 % Lymphocytes % 24 % Monocytes % 4 % Eosinophils % 3 % Basophils % 1 % Neutrophils # 4.5 (1.3-7.7) k/uL Lymphocytes # 1.6 (1.0-4.8) k/uL Monocytes # 0.3 (0-1.0) k/uL Eosinophils # 0.2 (0-0.7) k/uL Basophils # 0.1 (0-0.2) k/uL PT 10.8 (9.0-12.0) sec INR 1.0 (<1.2) APTT 28.2 (22.0-30.0) sec Sodium 140 (137-145) mmol/L Potassium 3.9 (3.5-5.1) mmol/L Chloride 107 (98-107) mmol/L Carbon Dioxide 22 (22-30) mmol/L Anion Gap 11 mmol/L BUN 13 (7-17) mg/dL Creatinine 0.88 (0.52-1.04) mg/dL Est GFR (CKD-EPI)AfAm >90 (>60 ml/min/1.73 sqM) Est GFR (CKD-EPI)NonAf 81 (>60 ml/min/1.73 sqM) Glucose 108 H (74-99) mg/dL Calcium 9.4 (8.4-10.2) mg/dL Magnesium 2.0 (1.6-2.3) mg/dL Total Bilirubin 0.6 (0.2-1.3) mg/dL AST 23 (14-36) U/L ALT 17 (4-34) U/L Alkaline Phosphatase 68 (38-126) U/L Troponin I (0.000-0.034) ng/mL Total Protein 7.5 (6.3-8.2) g/dL Albumin 4.4 (3.5-5.0) g/dL HCG, Qual Not Detected 09/03/20 Range/Units 09:07 WBC (3.8-10.6) k/uL RBC (3.80-5.40) m/uL Hgb (11.4-16.0) gm/dL Hct (34.0-46.0) % MCV (80.0-100.0) fL MCH (25.0-35.0) pg MCHC (31.0-37.0) g/dL RDW (11.5-15.5) % Plt Count (150-450) k/uL MPV Neutrophils % % Lymphocytes % % Monocytes % % Eosinophils % % Basophils % % Neutrophils # (1.3-7.7) k/uL Lymphocytes # (1.0-4.8) k/uL Monocytes # (0-1.0) k/uL Eosinophils # (0-0.7) k/uL Basophils # (0-0.2) k/uL PT (9.0-12.0) sec INR (<1.2) APTT (22.0-30.0) sec Sodium (137-145) mmol/L Potassium (3.5-5.1) mmol/L Chloride (98-107) mmol/L Carbon Dioxide (22-30) mmol/L Anion Gap mmol/L BUN (7-17) mg/dL Creatinine (0.52-1.04) mg/dL Est GFR (CKD-EPI)AfAm (>60 ml/min/1.73 sqM) Est GFR (CKD-EPI)NonAf (>60 ml/min/1.73 sqM) Glucose (74-99) mg/dL Calcium (8.4-10.2) mg/dL Magnesium (1.6-2.3) mg/dL Total Bilirubin (0.2-1.3) mg/dL AST (14-36) U/L ALT (4-34) U/L Alkaline Phosphatase (38-126) U/L Troponin I <0.012 (0.000-0.034) ng/mL Total Protein (6.3-8.2) g/dL Albumin (3.5-5.0) g/dL HCG, Qual Disposition Clinical Impression: SVT (supraventricular tachycardia) Disposition: HOME SELF-CARE Condition: Stable Instructions (If sedation given, give patient instructions): Supraventricular Tachycardia (ED) Additional Instructions: Please follow-up with Dr. Linares and your primary care doctor in regards to your symptoms. Return to the emergency room for any new or worsening symptoms Is patient prescribed a controlled substance at d/c from ED?: No Referrals: Katie Higuera NPC [Primary Care Provider] - 1-2 days Ole Linares MD [Family Provider] - 1-2 days Time of Disposition: 10:18
[2020-09-03 10:45] VITALS: BP 130/90; PULSE 80; RESP 20
[2020-09-03] MEDS ORDERED: ADENOSINE 3 MG/ML 2 ML VIAL IVP STA (15:49)
== END 2020-09-03 10:49 | disposition home or self-care (01) ==
LOC: EC 08:45
DX: I47.1 Supraventricular tachycardia (principal); I10 Essential (primary) hypertension; E07.9 Disorder of thyroid, unspecified
CPT/HCPCS: 36415; 80053; 83735; 84484; 84703; 85025; 85610; 85730; 93005; 99285

== ENCOUNTER → 2020-11-05 | Outpatient (CLI) | payer BC ==
[2020-11-05 15:13] LABS: HCT 39.8 % (34.0-46.0); HGB 13.3 gm/dL (11.4-16.0); MCH 31.1 pg (25.0-35.0); MCHC 33.4 g/dL (31.0-37.0); Mean Platelet Volume 7.5; Platelet Count 268 k/uL (150-450); RBC 4.28 m/uL (3.80-5.40); RDW 12.4 % (11.5-15.5); WBC 6.9 k/uL (3.8-10.6)
[2020-11-05 15:26] LABS: Potassium 4.5 mmol/L (3.5-5.1)
[2020-11-05 15:27] LABS: African American GFR (CKD) >90 (>60 ml/min/1.73 sqM); Anion Gap 8 mmol/L; Blood Urea Nitrogen 10 mg/dL (7-17); Carbon Dioxide 25 mmol/L (22-30); Chloride 106 mmol/L (98-107); Non-African American GFR(CKD) 90 (>60 ml/min/1.73 sqM); Sodium 139 mmol/L (137-145)
== END | disposition home or self-care (01) ==
LOC: LABPAT 13:51
PROVIDERS: ATTEND Internal Medicine Clinical Cardiac Electrophysiology
DX: Z01.812 Encounter for preprocedural laboratory examination (principal); I47.1 Supraventricular tachycardia
CPT/HCPCS: 80051; 82565; 84520; 85027

== ENCOUNTER 2020-11-12 20:23 | Emergency (ER) | payer BC ==
[2020-11-12 20:46] VITALS: RESP 18; TEMP 97.8
[2020-11-12] MEDS ORDERED: IBUPROFEN 600 MG TAB PO STA (20:59)
[2020-11-12] MEDS ORDERED: ACETAMINOPHEN TAB 325 MG TAB PO STA (20:59)
--- NOTE | 2020-11-12 21:02 | ED ---
Lower Extremity Injury HPI - General Chief Complaint: Extremity Injury, Lower Stated Complaint: L ankle injury Time Seen by Provider: 11/12/20 20:46 Source: patient Mode of arrival: wheelchair Limitations: no limitations - History of Present Illness Initial Comments: 45 year-old female patient presents to the emergency department for evaluation of left ankle pain and swelling. States about an hour ago she was coming out of the shed when she twisted her ankle and fell. Reports pain over the lateral aspect of the ankle and foot. Denies any numbness or tingling. Denies previous injury to the ankle. Denies hitting her head or losing consciousness with the fall. Denies any other injuries. Patient denies any headache, neck pain, back pain, chest pain, shortness of breath, dizziness, weakness, abdominal pain, nausea, vomiting, or difficulties with bowel movements or urination. - Related Data Home Medications Medication Instructions Recorded Confirmed Sertraline [Zoloft] 100 mg PO DAILY@0800 11/09/19 09/03/20 Levothyroxine Sodium [Synthroid] 88 mcg PO DAILY 09/03/20 09/03/20 Metoprolol Tartrate [Lopressor] 25 mg PO HS 09/03/20 09/03/20 Previous Rx's Medication Instructions Recorded Ibuprofen [Motrin] 600 mg PO Q8HR PRN #30 tab 11/12/20 Allergies Allergy/AdvReac Type Severity Reaction Status Date / Time Sulfa (Sulfonamide Allergy Rash/Hives Verified 11/12/20 20:44 Antibiotics) Review of Systems ROS Statement: Those systems with pertinent positive or pertinent negative responses have been documented in the HPI. ROS Other: All systems not noted in ROS Statement are negative. Past Medical History Past Medical History: Hypertension, Supraventricular Tachycardia (SVT), Thyroid Disorder History of Any Multi-Drug Resistant Organisms: None Reported Past Surgical History: Tubal Ligation Past Psychological History: Anxiety, Depression Smoking Status: Never smoker Past Alcohol Use History: Occasional Past Drug Use History: None Reported General Exam Limitations: no limitations General appearance: alert, in no apparent distress, other (Physical well- developed, well-nourished adult female patient in no acute distress. Vital signs upon presentation temperature 97.8F, pulse 72, respirations 18, blood pressure 120/78, pulse ox 98% on room air.) ENT exam: Absent: mucous membranes moist Neck exam: Present: normal inspection, full ROM, other (Nontender, no step-off, no deformity to firm midline palpation of the posterior cervical spine. Full ra nge of motion without pain or limitation.). Absent: tenderness, meningismus, lymphadenopathy Respiratory exam: Present: normal lung sounds bilaterally. Absent: respiratory distress, wheezes, rales, rhonchi, stridor Cardiovascular Exam: Present: regular rate, normal rhythm, normal heart sounds. Absent: systolic murmur, diastolic murmur, rubs, gallop, clicks Extremities exam: Present: full ROM, tenderness (Left lateral malleolus, left fifth metatarsal), normal capillary refill, other (There is soft tissue swelling surrounding the left lateral malleolus. Skin otherwise pink, warm, dry. Cap refill less than 3 seconds. Pedal and posttibial pulses 2+). Absent: normal inspection, pedal edema, joint swelling, calf tenderness Neurological exam: Present: alert, oriented X3, CN II-XII intact Psychiatric exam: Present: normal affect, normal mood Skin exam: Present: warm, dry, intact, normal color. Absent: rash Course Vital Signs 11/12/20 20:44 Temperature 97.8 F Pulse Rate 72 Respiratory 18 Rate Blood Pressure 120/78 O2 Sat by Pulse 98 Oximetry Procedures - Orthopedic Splinting/Casting Injury #1 Side: left Lower Extremity Injury Location: ankle Lower Extremity Immobilizer: AirCast, Toy wrap Medical Decision Making - Medical Decision Making 45-year-old female patient presented to the emergency department today for evaluation of left ankle pain and swelling after twisting injury. Physical examination did reveal swelling surrounding the lateral malleolus. Neurovascular status is intact. Pulses are intact. X-rays are obtained and showed no evidence for fracture. She was placed in an Toy wrap and stirrup splint. She is educated regarding rest, ice, elevation. She is instructed follow up with her primary care physician for recheck in 1-2 days. She is instructed to have repeat xrays performed in 7-10 days if pain symptoms persist. Return parameters were discussed in detail. She verbalizes understanding and agrees with this plan. My attending is Dr. Atkins. - Radiology Data Radiology results: report reviewed, image reviewed Negative left foot exam. No fracture. Mild calcaneal spurring noted. Soft tissue swelling. No fracture. Disposition Clinical Impression: Left ankle sprain Disposition: HOME SELF-CARE Condition: Good Instructions (If sedation given, give patient instructions): Ankle Sprain (ED) Additional Instructions: Use splint for comfort and support. Rest, ice, and elevate the ankle as much as possible. Take tylenol and motrin for pain control. Follow-up with your primary care physician for recheck in 1-2 days. Have repeat x-rays performed in 7-10 days if pain symptoms persist. Return for any new, worsening, or concerning symptoms. Prescriptions: Ibuprofen [Motrin] 600 mg PO Q8HR PRN #30 tab PRN Reason: Pain Is patient prescribed a controlled substance at d/c from ED?: No Referrals: Anmol Grande MD [Primary Care Provider] - 1-2 days Time of Disposition: 22:06
--- NOTE | 2020-11-12 21:22 | XR ---
EXAMINATION TYPE: XR ankle complete LT DATE OF EXAM: 11/12/2020 COMPARISON: NONE HISTORY: Ankle pain TECHNIQUE: 3 views FINDINGS: There is soft tissue swelling over the lateral malleolus. Ankle mortise is anatomic. I see no fracture nor dislocation. IMPRESSION: Soft tissue swelling. No fracture.
--- NOTE | 2020-11-12 22:00 | XR ---
EXAMINATION TYPE: XR foot complete LT DATE OF EXAM: 11/12/2020 COMPARISON: NONE HISTORY: Pain and swelling TECHNIQUE: 3 views FINDINGS: The metacarpals are intact. I see no fracture nor dislocation. Joint spaces are normal. The re are no erosions. IMPRESSION: Negative left foot exam. No fracture. Mild calcaneal spurring noted.
[2020-11-12 22:25] VITALS: BP 132/84; PULSE 63
== END 2020-11-12 22:24 | disposition home or self-care (01) ==
LOC: EC 20:23
DX: S93.402A Sprain of unspecified ligament of left ankle, initial encounter (principal); M77.32 Calcaneal spur, left foot; I10 Essential (primary) hypertension; W18.30XA Fall on same level, unspecified, initial encounter
CPT/HCPCS: 29515; 99283

== ENCOUNTER 2020-11-15 08:48 | Observation (INO) | payer BC ==
[2020-11-13 13:38] VITALS: BMI 42.5
[~2020-11-15 08:48] MED LIST changes: -DEXAMETHASONE SOD PHOSPHATE 10 MG/ML 1 ML VIAL IV ONE; -LACTATED RINGERS 1,000 ML IV SCH; -MIDAZOLAM 2 MG/2 ML VIAL IV PRN; -ONDANSETRON 4 MG/2 ML VIAL IVP ONE; -Pre Op ABX Message 1 EACH MISC MISCELLANE ONE; -SCOPOLAMINE 1.5MG/72HR PATCH TRANSDERM ONE; +SODIUM CHLORIDE 0.9% 1,000 ML IV SCH
[2020-11-15] MEDS ORDERED: MIDAZOLAM 2 MG/2 ML VIAL ONE (11:29)
[2020-11-15] MEDS ORDERED: fentaNYL (PF) 50 MCG/ML 2 ML AMP ONE (11:29)
[2020-11-15] MEDS ORDERED: diphenhydrAMINE 50 MG/ML 1 ML VIAL ONE (11:29)
[2020-11-15] MEDS ORDERED: ISOPROTERENOL 250 MCG/1.25 ML SYR IV ONE (11:29)
[2020-11-15] MEDS ORDERED: PROPOFOL 10 MG/ML 20 ML VIAL IV ONE (11:29)
[2020-11-15] MEDS ORDERED: LIDOCAINE 1% INJ 10MG/ML (20 ML MDV) ONE ×2 (11:46→12:20)
[2020-11-15] MEDS ORDERED: LIDOCAINE 1% INJ 10MG/ML (20 ML MDV) SQ ONE (12:12)
[2020-11-15] MEDS ORDERED: HEPARIN SODIUM (1,000 UNIT/ML) 1,000 UNIT in SODIUM CHLORIDE 0.9% 1,000 ML IRRIGATION ONE (12:30)
[2020-11-15] MEDS ORDERED: ACETAMINOPHEN IV (For NPO) 1,000 MG in EMPTY BAG 1 BAG IVPB ONE (14:44)
--- NOTE | 2020-11-15 15:03 | P.EPPROC ---
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 Written informed consent was obtained prior to the procedure Venous sheaths were placed in the right and left femoral veins Baseline measurements are normal OK interval 187 ms, QRS 95 ms, QT 480 ms Sinus cycle length 1076 ms AH 65, HV 48 ms Parahisian pacing revealed a praneeth response Sinus node recovery times normal. AV node Wenckebach block 330 ms Pathway no delta waves VA Wenckebach block 450 ms Jump in the AH interval noted with atrial extra stimulation along with single echo beats On Isuprel with straight pacing AV praneeth reentry was induced AV praneeth reentry was also induced with burst stimulation in the RV Very short septal times VAAV response noted with a long post-pacing interval His refractory PVCs did not advance the tachycardia Tachycardia was terminated Isuprel was discontinued 3-D electro-anatomic mapping performed His cloud and Magdi sinus os Slow pathway mapped Successful RF with an irrigated tip ablation catheter 25-30 W Just outside the coronary sinus os and finally at the roof of the coronary sinus/just outside it Following this atrial and ventricular stimulation was performed on and off Isuprel as well as during the washout period No evidence for AV praneeth reentry although slow pathway was noted with straight pacing Retrograde conduction was midline and decremental OK interval stable AV node Wenckebach block 200 ms on Isuprel A detailed study performed on and off Isuprel from the high right atrium Magdi sinus and the right ventricle No AV node reentry induced Atrial pacing left bundle branch block aberrancy noted A very brief nonsustained episode of low right atrial tachycardia induced that was not mapped tolerated for ablation, nonclinical arrhythmia Patient tolerated the procedure well without any acute complications Sheaths were removed Hemostasis was assured
--- NOTE | 2020-11-15 15:05 | P.PRLE ---
RE: Nichole Miller Dear Katie Varela underwent a diagnostic EP study and successful. ablation for AV praneeth reentrant tachycardia The tachycardia was rendered noninducible I would recommend stopping metoprolol now Thank you for entrusting me with the care of the patient Warm regards Sincerely Ronen Valdez
[2020-11-15] MEDS: LACTATED RINGERS 1,000 ML IV SCH (16:34)
[2020-11-15] MEDS: HYDROcodone/APAP 5-325MG 1 EACH TAB PO PRN (21:18)
[2020-11-15] MEDS: ACETAMINOPHEN TAB 325 MG TAB PO PRN (21:18)
[2020-11-16] MEDS: LACTATED RINGERS 1,000 ML IV SCH (04:36)
[2020-11-16] MEDS: HYDROcodone/APAP 5-325MG 1 EACH TAB PO PRN (05:50)
[2020-11-16] MEDS ORDERED: LEVOTHYROXINE 88 MCG TAB PO SCH (06:30)
[2020-11-16] MEDS ORDERED: SERTRALINE 100 MG TAB PO SCH (08:00)
[2020-11-16 08:04] VITALS: TEMP 97.9
[2020-11-16] MEDS ORDERED: ONDANSETRON 4 MG/2 ML VIAL IVP PRN (09:28)
--- NOTE | 2020-11-16 12:06 | P.DS ---
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 Valdez in 3 weeks Plan - Discharge Summary Discharge Rx Participant: No New Discharge Prescriptions: Discontinued Metoprolol Tartrate [Lopressor] 25 mg PO HS No Action Sertraline [Zoloft] 100 mg PO DAILY@0800 Levothyroxine Sodium [Synthroid] 88 mcg PO DAILY Acetaminophen Tab [Tylenol] 650 mg PO Q6H PRN PRN Reason: Pain Discharge Medication List Sertraline [Zoloft] 100 mg PO DAILY@0800 11/09/19 [History] Levothyroxine Sodium [Synthroid] 88 mcg PO DAILY 09/03/20 [History] Acetaminophen Tab [Tylenol] 650 mg PO Q6H PRN 11/13/20 [History] Follow up Appointment(s)/Referral(s): Ronen Valdez MD [STAFF PHYSICIAN] - 3 Weeks (Follow Dr. Valdez/Avril Rizvi in 3 weeks) Activity/Diet/Wound Care/Special Instructions: Post EP study - Ablation instructions 1. Keep access sites dry for 2 days. 2. No heavy lifting or straining for 2 days. 3. Avoid bending the hips repeatedly for 2 days. 4. You may go up and down stairs slowly Call if the following is noted 1. Bleeding, increasing swelling or pain at the access sites. 2. Increasing chest discomfort, especially upon taking a deep breath. 3. Increasing shortness of breath, at rest or with exertion. 4. Undue cough / phlegm 5. Difficulty or pain while swallowing. 6. Pain or change in color in the extremities. 7. Fever, chills, rigors. 8. Increasing headache or neurologic symptoms. 9. Dizziness, fainting, palpitations Stop metoprolol
[2020-11-16] MEDS: ACETAMINOPHEN TAB 325 MG TAB PO PRN (14:58)
[2020-11-16 15:31] VITALS: BP 127/83; PULSE 62; RESP 16
== END 2020-11-16 15:35 | disposition home or self-care (01) ==
LOC: CATHEP 08:48 → 6NMEDSUR 15:07 → CATHEP 11-16 11:49 → 6NMEDSUR 11-16 12:01
PROVIDERS: ADMIT Internal Medicine Clinical Cardiac Electrophysiology; ATTEND Internal Medicine Clinical Cardiac Electrophysiology
DX: I47.1 Supraventricular tachycardia (principal); R11.0 Nausea; I44.7 Left bundle-branch block, unspecified; E03.9 Hypothyroidism, unspecified; Z20.822 Contact with and (suspected) exposure to COVID-19; Z79.890 Hormone replacement therapy; Z79.899 Other long term (current) drug therapy; Z88.2 Allergy status to sulfonamides
CPT/HCPCS: 93005; 93623; 93613; 93653; 87635; G0378; C1894; C1769 ×2; C1730 ×3; C1732; J2250; J1200; J2405; J2001; J3010; J1644; J0131; J2704

== ENCOUNTER → 2020-12-17 | Outpatient (CLI) | payer BC ==
--- NOTE | 2020-12-19 14:23 | MM ---
Reason for exam: screening (asymptomatic). Last mammogram was performed 2 years and 2 months ago. History: Patient history of other cancer and had first child at age 34. Took hormonal contraceptives for 3 years beginning at age 41. Physical Findings: A clinical breast exam by your physician is recommended on an annual basis and results should be correlated with mammographic findings. MG Screening Mammo w CAD Bilateral CC and MLO view(s) were taken. XCCL view(s) were taken of the right breast. Prior study comparison: October 08, 2018, bilateral MG screening mammo w CAD. December 16, 2016, bilateral MG screening mammo w CAD. There are scattered fibroglandular densities. No significant changes when compared with prior studies. ASSESSMENT: Benign, BI-RAD 2 RECOMMENDATION: Routine screening mammogram of both breasts in 1 year.
== END | disposition home or self-care (01) ==
LOC: RADMAMWWP 13:57
PROVIDERS: ATTEND Obstetrics & Gynecology
DX: Z12.31 Encounter for screening mammogram for malignant neoplasm of breast (principal)
CPT/HCPCS: 77067

== ENCOUNTER → 2021-01-23 | Outpatient (CLI) | payer BC ==
--- NOTE | 2021-01-24 06:57 | US ---
EXAMINATION TYPE: US thyroid st tissue head/neck DATE OF EXAM: 01/23/2021 COMPARISON: Prior thyroid ultrasound August 23, 2019 and older studies. CLINICAL HISTORY: E04.2 Nontoxi c multinodular goiter. thy nodule GLAND SIZE: Right Lobe: 5.4 x 1.9 x 1.7 cm Overall Parenchyma: heterogenous Left Lobe: 5.3 x 1.7 x 1.9 cm Overall Parenchyma: heterogeneous Isthmus Thickness: cm NODULES RIGHT: # of nodules measured on right: 1 1. 1.2 X .8 x 1.0 cm, mid , solid or almost completely solid, hypoechoic nodule, which is wider th an tall, with smooth margins, without echogenic foci. Prior size: 1.0 x .6 x 1.0 cm LEFT: # of nodules measured on left: 1 1. .9 x .6 X x .9 cm, lower medial, solid or almost completely solid, hypoechoic nodule, which is wider than tall, with smooth margins, without echogenic foci. Prior size: .9 x .9 x 1.1 cm ISTHMUS: # of nodules measured in the isthmus: 0 Bilateral neck scanned, no evidence of lymphadenopathy. Persistent heterogeneous thyroid measuring upper limits of normal in size with stable near 1.0 cm nod ules bilaterally as detailed above. IMPRESSION: As above. No new or enlarging suspicious nodules identified.
== END | disposition home or self-care (01) ==
LOC: RADUSWWP 15:33
PROVIDERS: ATTEND Internal Medicine Endocrinology, Diabetes & Metabolism
DX: E04.2 Nontoxic multinodular goiter (principal)
CPT/HCPCS: 76536

== ENCOUNTER → 2021-01-28 | Outpatient (CLI) | payer BC | END | disposition home or self-care (01) | LOC: LABWHC1 14:44 | PROVIDERS: ATTEND Internal Medicine Endocrinology, Diabetes & Metabolism | DX: E03.8 Other specified hypothyroidism (principal); E55.9 Vitamin D deficiency, unspecified | CPT/HCPCS: 36415; 82306; 84443 ==

== ENCOUNTER → 2021-12-11 | Outpatient (CLI) | payer BC | END | disposition home or self-care (01) | LOC: LABWHC1 13:40 | PROVIDERS: ATTEND Internal Medicine Endocrinology, Diabetes & Metabolism | DX: E04.2 Nontoxic multinodular goiter (principal) | CPT/HCPCS: 36415; 84443 ==

== ENCOUNTER → 2022-03-27 | Outpatient (CLI) | payer BC ==
--- NOTE | 2022-03-28 08:18 | MM ---
Reason for Exam: Screening (asymptomatic). Last mammogram was performed 1 year(s) and 4 month(s) ago. Patient History: Menarche at age 15. First Full-Term at age 34. Late child-bearing (after 30). Other cancer. Hormonal Contraceptives for 3 years from age 41 until age 43. Risk Values: Iwona 5 year model risk: 1.1%. NCI Lifetime model risk: 13.1%. Prior Study Comparison: 12/16/2016 Bilateral Screening Mammogram, [facility]. 10/08/2018 Bilateral Screening Mammogram, [facility]. 12/17/2020 Bilateral Screening Mammogram, [facility]. Tissue Density: The breast tissue is heterogeneously dense. This may lower the sensitivity of mammography. Findings: Analyzed By CAD. There is no suspicious group of microcalcifications or new suspicious mass in either breast. Stable nodularity in the right breast. No significant change from prior exams. Overall Assessment: Benign, BI-RAD 2 Management: Screening Mammogram of both breasts in 1 year. A clinical breast exam by your physician is recommended on an annual basis and results should be correlated with mammographic findings. Electronically signed and approved by: Bassem Cerrato D.O.
== END | disposition home or self-care (01) ==
LOC: RADMAMWWP 15:48
PROVIDERS: ATTEND Obstetrics & Gynecology
DX: Z12.31 Encounter for screening mammogram for malignant neoplasm of breast (principal)
CPT/HCPCS: 77067

== ENCOUNTER → 2022-03-27 | Outpatient (CLI) | payer BC ==
--- NOTE | 2022-03-28 08:31 | US ---
EXAMINATION TYPE: US thyroid st tissue head/neck DATE OF EXAM: 03/27/2022 COMPARISON: NONE CLINICAL HISTORY: E042 MULTINODULAR GOITER. f/u nodules GLAND SIZE: Right Lobe: 5.8 x 1.8 x 2.0 cm Overall Parenchyma: heterogenous Left Lobe: 4.9 x 1.5 x 2.4 cm Overall Parenchyma: heterogeneous Isthmus Thickness: 0.7 cm NODULES RIGHT: # of nodules measured on right: multiple, measured the nodules that was done previously 1. 1.2 X 1.0 x 0.8 cm, mid, solid or almost completely solid, hyperechoic nodule, which is wider th an tall, with smooth margins, without echogenic foci. TR 3 Prior size: 1.2 x 1.0 x 0.8 cm LEFT: # of nodules measured on left: multiple, measured the nodules that was done previously 1. 1.0 X 0.6 x 0.6 cm, medial, solid or almost completely solid, hyperechoic nodule, which is wide r than tall, with smooth margins, without echogenic foci. Prior size: 0.9 x 0.6 x 0.9 cm ISTHMUS: # of nodules measured in the isthmus: 0 Bilateral neck scanned, no evidence of lymphadenopathy. IMPRESSION: 1. Mildly suspicious nodule right lobe thyroid. Consider follow-up exam in one year. 2017 ACR TI-RADS LEVEL: TR-RADS 3 - Mildly Suspicious: Follow if > 1.5 cm, FNA if > 2.5 cm *Highest TI-RADS level nodule reported
== END | disposition home or self-care (01) ==
LOC: RADUSWWP 15:50
PROVIDERS: ATTEND Internal Medicine Endocrinology, Diabetes & Metabolism
DX: E04.2 Nontoxic multinodular goiter (principal)
CPT/HCPCS: 76536

== ENCOUNTER → 2022-05-27 | Outpatient (CLI) | payer BC ==
[2022-05-27 15:43] LABS: Basophils # (A) 0.06 X 10*3/uL (0.00-0.10); Basophils % (A) 1.4 %; Eosinophils # (A) 0.11 X 10*3/uL (0.04-0.35); Eosinophils % (A) 2.6 %; HCT 40.4 % (37.2-46.3); HGB 13.1 g/dL (12.0-15.0); Immature Grans, Automated 0.2 %; Lymphocytes # (A) 0.87 X 10*3/uL (0.90-5.00); Lymphocytes % (A) 20.8 %; MCH 30.6 pg (27.0-32.0); MCHC 32.4 g/dL (32.0-37.0); MCV 94.4 fL (80.0-97.0); Mean Platelet Volume 10.1 fL (9.5-12.2); Monocytes # (A) 0.33 X 10*3/uL (0.20-1.00); Monocytes % (A) 7.9 %; NRBC Per 100 WBC 0 /100 WBCS (0.0-0.0); Neutrophils # (A) 2.81 X 10*3/uL (1.80-7.70); Neutrophils % (A) 67.1 %; Platelet Count 229 X 10*3/uL (140-440); RBC 4.28 X 10*6/uL (4.10-5.20); RDW 11.4 % (11.5-14.5); WBC 4.19 X 10*3/uL (4.50-10.00)
[2022-05-27 16:16] LABS: Erythrocyte Sedimentation Rate 10 mm/Hr (0-20)
[2022-05-27 18:07] LABS: Centromere Antibody <0.2 AI; Centromere Antibody Interp NEGATIVE (NEGATIVE); Cyclic Citrull Pep IgG Unit <0.5 U/mL; Cyclic Citrullinated Pep IgG NEGATIVE (NEGATIVE); DNA Double-Stranded NEGATIVE (NEGATIVE); Scleroderma SC-70 Ab <0.2 AI
[2022-05-27 18:22] LABS: ALT 26 U/L (8-44); AST 20 U/L (13-35); Albumin 4.3 g/dL (3.8-4.9); Albumin/Globulin Ratio 1.88 (1.60-3.17); Alkaline Phosphatase 65 U/L (41-126); BUN/Creat Ratio 11.88 Ratio (12.00-20.00); Blood Urea Nitrogen 10.7 mg/dL (9.0-27.0); Calcium 9.2 mg/dL (8.7-10.3); Carbon Dioxide 21.2 mmol/L (20.0-27.5); Chloride 105 mmol/L (96-109); Chol/HDL Ratio 4.91 Ratio; Globulin 2.3 g/dL (1.6-3.3); Glucose 96 mg/dL (70-110); LDL Cholesterol,Calculated 144.8 mg/dL (0.0-131.0); Non-African American GFR(CKD) 77.7 (60.0-200.0); Potassium 4.3 mmol/L (3.5-5.5); Rheumatoid Factor, Qnt <10 IU/mL (0-15); Sodium 140 mmol/L (135-145); Total Protein 6.7 g/dL (6.2-8.2)
== END | disposition home or self-care (01) ==
LOC: LABWHC1 09:08
PROVIDERS: ATTEND Internal Medicine Endocrinology, Diabetes & Metabolism
DX: Z00.00 Encounter for general adult medical examination without abnormal findings (principal); E04.2 Nontoxic multinodular goiter; E55.9 Vitamin D deficiency, unspecified; M25.50 Pain in unspecified joint; E03.9 Hypothyroidism, unspecified
CPT/HCPCS: 36415; 80053; 80061; 82306; 84439; 84443; 85025; 85652; 86038; 86200; 86225; 86235; 86431

== ENCOUNTER → 2022-12-03 | Outpatient (CLI) | payer BC | END | disposition home or self-care (01) | LOC: LABWHC1 15:41 | PROVIDERS: ATTEND Internal Medicine Endocrinology, Diabetes & Metabolism | DX: E03.8 Other specified hypothyroidism (principal) | CPT/HCPCS: 36415; 84443 ==

== ENCOUNTER 2023-06-03 02:21 | Emergency (ER) | payer BC ==
[2023-06-03 02:50] VITALS: TEMP 98
[2023-06-03] MEDS ORDERED: SODIUM CHLORIDE 0.9% 1,000 ML IV STA (02:51)
[2023-06-03] MEDS ORDERED: HYDROmorphone 0.5 MG/0.5 ML SYRINGE IVP STA (02:52)
[2023-06-03] MEDS ORDERED: METOCLOPRAMIDE 5 MG/ML 2 ML VIAL IVP STA (02:52)
--- NOTE | 2023-06-03 02:56 | ED ---
General Adult HPI - General Chief complaint: Arrhythmia/Palpitations Stated complaint: Hypertension, Heart Palpitations, Headache, SVT Time Seen by Provider: 06/03/23 02:37 Source: patient, RN notes reviewed, old records reviewed Mode of arrival: ambulatory Limitations: no limitations - History of Present Illness Initial comments: 48-year-old female with recent diagnosis of hypertension presenting for evaluation of palpitations, fluttering sensation in her chest. No chest pain. Patient also reports a frontal headache. She does report history of headaches but states she woke with this headache just prior to arrival. She denies fever. Denies vomiting. Denies chest or abdominal pain. Denies focal numbness or weakness. She was started on amlodipine this week. - Related Data Home Medications Medication Instructions Recorded Confirmed Sertraline [Zoloft] 100 mg PO DAILY@0800 11/09/19 11/15/20 Levothyroxine Sodium [Synthroid] 88 mcg PO DAILY 09/03/20 11/15/20 Acetaminophen Tab [Tylenol] 650 mg PO Q6H PRN 11/13/20 11/13/20 Allergies Allergy/AdvReac Type Severity Reaction Status Date / Time Sulfa (Sulfonamide Allergy Rash/Hives Verified 06/03/23 02:32 Antibiotics) Review of Systems ROS Statement: Those systems with pertinent positive or pertinent negative responses have been documented in the HPI. ROS Other: All systems not noted in ROS Statement are negative. Past Medical History Past Medical History: Hypertension, Supraventricular Tachycardia (SVT), Thyroid Disorder Additional Past Medical History / Comment(s): fully vaccinated for covid, sprained left ankle recently-has farzaneh wrapped, see Dr. Valdez H & P History of Any Multi-Drug Resistant Organisms: None Reported Past Surgical History: Tubal Ligation Past Anesthesia/Blood Transfusion Reactions: No Reported Reaction Past Psychological History: Anxiety, Depression Smoking Status: Never smoker Past Alcohol Use History: Occasional Past Drug Use History: None Reported General Exam Limitations: no limitations General appearance: alert, in no apparent distress Head exam: Present: atraumatic, normocephalic Eye exam: Present: normal appearance, PERRL ENT exam: Present: normal exam Neck exam: Present: normal inspection. Absent: tenderness, meningismus Respiratory exam: Present: normal lung sounds bilaterally. Absent: respiratory distress, wheezes Cardiovascular Exam: Present: regular rate, normal rhythm GI/Abdominal exam: Present: soft. Absent: distended, tenderness, guarding, rebound Extremities exam: Present: normal inspection, normal capillary refill. Absent: calf tenderness Neurological exam: Present: alert, oriented X3, CN II-XII intact. Absent: motor sensory deficit Psychiatric exam: Present: normal affect, normal mood Skin exam: Present: warm, dry, intact. Absent: cyanosis, diaphoretic Course Vital Signs 06/03/23 06/03/23 02:29 04:03 Temperature 98 F Pulse Rate 64 67 Respiratory 18 17 Rate Blood Pressure 157/82 112/69 O2 Sat by Pulse 98 97 Oximetry Medical Decision Making - Medical Decision Making Was pt. sent in by a medical professional or institution (, [facility], [employer]MER, urgent care, hospital, or assisted...) When possible be specific @ -No Did you speak to anyone other than the patient for history (EMS, parent, family, police, friend...)? What history was obtained from this source @ -No Did you review nursing and triage notes (agree or disagree)? Why? @ -I reviewed and agree with nursing and triage notes Were old charts reviewed (outside hosp., previous admission, EMS record, old EKG, old radiological studies, urgent care reports/EKG's, assisted records)? Report findings @ -No old charts were reviewed Differential Diagnosis (chest pain, altered mental status, abdominal pain women, abdominal pain men, vaginal bleeding, weakness, fever, dyspnea, syncope, headache, dizziness, GI bleed, back pain, seizure, CVA, palpatations, mental health, musculoskeletal)? @ -not applicable EKG interpreted by me (3pts min.). @Sinus rhythm rate of 66, TN interval 178, QRS duration 99, QTC 408, no ST segment elevation. X-rays interpreted by me (1pt min.). @ -None done CT interpreted by me (1pt min.). @ -[CT brain negative for intracranial hemorrhage or mass effect U/S interpreted by me (1pt. min.). @ -None done What testing was considered but not performed or refused? (CT, X-rays, U/S, labs)? Why? @ -None What meds were considered but not given or refused? Why? @ -None Did you discuss the management of the patient with other professionals (professionals i.e. , PA, [employer]MER, lab, RT, psych nurse, social media editor, magnetic locater, teacher, labor relations officer, home health care case manager)? Give summary @ -No Was smoking cessation discussed for >3mins.? @ -No Was critical care preformed (if so, how long)? @ -No Were there social determinants of health that impacted care today? How? (Homelessness, low income, unemployed, alcoholism, drug addiction, transp ortation, low edu. Level, literacy, decrease access to med. care, nursing home, rehab)? @ -No Was there de-escalation of care discussed even if they declined (Discuss DNR or withdrawal of care, Hospice)? DNR status @ -No What co-morbidities impacted this encounter? (DM, HTN, Smoking, COPD, CAD, Cancer, CVA, ARF, Chemo, Hep., AIDS, mental health diagnosis, sleep apnea, morbid obesity)? @ -Hypertension, SVT Was patient admitted / discharged? Hospital course, mention meds given and route, prescriptions, significant lab abnormalities, going to OR and other pertinent info. @ -[48-year-old female presenting with palpitations, headache, hypertension. Initial blood pressure is mildly elevated. Patient has frontal headache which she woke from just prior to arrival. CT negative for intracranial hemorrhage or mass effect. Normal CBC, normal CMP negative troponin, EKG is sinus rhythm. Undiagnosed new problem with uncertain prognosis? @ -No Drug Therapy requiring intensive monitoring for toxicity (Heparin, Nitro, Insulin, Cardizem)? @ -No Were any procedures done? @ -No Diagnosis/symptom? @ Palpitations Acute, or Chronic, or Acute on Chronic? @ -Acute Uncomplicated (without systemic symptoms) or Complicated (systemic symptoms)? @ -default Side effects of treatment? @ -No Exacerbation, Progression, or Severe Exacerbation? @ -No Poses a threat to life or bodily function? How? (Chest pain, [place], [place], pneumonia, PE, COPD, DKA, ARF, appy, cholecystitis, CVA, Diverticulitis, Homicidal, Suicidal, threat to staff... and all critical care pts) @ -[Low risk at this time - Lab Data Result diagrams: 06/03/23 03:04 06/03/23 03:04 Lab Results 06/03/23 06/03/23 06/03/23 Range/Units 03:04 03:04 03:04 WBC 5.6 (3.8-10.6) k/uL RBC 4.32 (3.80-5.40) m/uL Hgb 13.4 (11.4-16.0) gm/dL Hct 39.7 (34.0-46.0) % MCV 92.0 (80.0-100.0) fL MCH 31.0 (25.0-35.0) pg MCHC 33.6 (31.0-37.0) g/dL RDW 11.7 (11.5-15.5) % Plt Count 240 (150-450) k/uL MPV 7.5 Neutrophils % 57 % Lymphocytes % 30 % Monocytes % 5 % Eosinophils % 5 % Basophils % 1 % Neutrophils # 3.2 (1.3-7.7) k/uL Lymphocytes # 1.7 (1.0-4.8) k/uL Monocytes # 0.3 (0-1.0) k/uL Eosinophils # 0.3 (0-0.7) k/uL Basophils # 0.1 (0-0.2) k/uL PT 11.6 (10.0-12.5) sec INR 1.1 (<1.2) APTT 30.5 H (22.0-30.0) sec Sodium 139 (137-145) mmol/L Potassium 4.0 (3.5-5.1) mmol/L Chloride 105 (98-107) mmol/L Carbon Dioxide 23 (22-30) mmol/L Anion Gap 11 mmol/L BUN 13 (7-17) mg/dL Creatinine 0.67 (0.52-1.04) mg/dL Est GFR (CKD-EPI)AfAm >90 (>60 ml/min/1.73 sqM) Est GFR (CKD-EPI)NonAf >90 (>60 ml/min/1.73 sqM) Glucose 102 H (74-99) mg/dL Calcium 9.6 (8.4-10.2) mg/dL Magnesium 2.2 (1.6-2.3) mg/dL Total Bilirubin 0.4 (0.2-1.3) mg/dL AST 26 (14-36) U/L ALT 22 (4-34) U/L Alkaline Phosphatase 65 (38-126) U/L Troponin I (0.000-0.034) ng/mL Total Protein 7.1 (6.3-8.2) g/dL Albumin 4.1 (3.5-5.0) g/dL 06/03/23 Range/Units 03:04 WBC (3.8-10.6) k/uL RBC (3.80-5.40) m/uL Hgb (11.4-16.0) gm/dL Hct (34.0-46.0) % MCV (80.0-100.0) fL MCH (25.0-35.0) pg MCHC (31.0-37.0) g/dL RDW (11.5-15.5) % Plt Count (150-450) k/uL MPV Neutrophils % % Lymphocytes % % Monocytes % % Eosinophils % % Basophils % % Neutrophils # (1.3-7.7) k/uL Lymphocytes # (1.0-4.8) k/uL Monocytes # (0-1.0) k/uL Eosinophils # (0-0.7) k/uL Basophils # (0-0.2) k/uL PT (10.0-12.5) sec INR (<1.2) APTT (22.0-30.0) sec Sodium (137-145) mmol/L Potassium (3.5-5.1) mmol/L Chloride (98-107) mmol/L Carbon Dioxide (22-30) mmol/L Anion Gap mmol/L BUN (7-17) mg/dL Creatinine (0.52-1.04) mg/dL Est GFR (CKD-EPI)AfAm (>60 ml/min/1.73 sqM) Est GFR (CKD-EPI)NonAf (>60 ml/min/1.73 sqM) Glucose (74-99) mg/dL Calcium (8.4-10.2) mg/dL Magnesium (1.6-2.3) mg/dL Total Bilirubin (0.2-1.3) mg/dL AST (14-36) U/L ALT (4-34) U/L Alkaline Phosphatase (38-126) U/L Troponin I <0.012 (0.000-0.034) ng/mL Total Protein (6.3-8.2) g/dL Albumin (3.5-5.0) g/dL Disposition Clinical Impression: Palpitations Disposition: HOME SELF-CARE Condition: Fair Instructions (If sedation given, give patient instructions): Heart Palpitations (ED) Is patient prescribed a controlled substance at d/c from ED?: No Referrals: Anmol Grande MD [Primary Care Provider] - 1-2 days Time of Disposition: 04:12
[2023-06-03 03:36] LABS: Basophils # (A) 0.1 k/uL (0-0.2); Basophils % (A) 1 %; Eosinophils # (A) 0.3 k/uL (0-0.7); Eosinophils % (A) 5 %; HCT 39.7 % (34.0-46.0); HGB 13.4 gm/dL (11.4-16.0); Lymphocytes # (A) 1.7 k/uL (1.0-4.8); Lymphocytes % (A) 30 %; MCHC 33.6 g/dL (31.0-37.0); Mean Platelet Volume 7.5; Monocytes # (A) 0.3 k/uL (0-1.0); Monocytes % (A) 5 %; Neutrophils # (A) 3.2 k/uL (1.3-7.7); Neutrophils % (A) 57 %; Platelet Count 240 k/uL (150-450); RBC 4.32 m/uL (3.80-5.40); RDW 11.7 % (11.5-15.5); WBC 5.6 k/uL (3.8-10.6)
[2023-06-03 03:41] LABS: INR 1.1 (<1.2); Partial Thromboplastin Time 30.5 sec (22.0-30.0); Prothrombin Time 11.6 sec (10.0-12.5)
[2023-06-03 03:53] LABS: ALT 22 U/L (4-34); AST 26 U/L (14-36); African American GFR (CKD) >90 (>60 ml/min/1.73 sqM); Albumin 4.1 g/dL (3.5-5.0); Alkaline Phosphatase 65 U/L (38-126); Anion Gap 11 mmol/L; Blood Urea Nitrogen 13 mg/dL (7-17); Calcium 9.6 mg/dL (8.4-10.2); Carbon Dioxide 23 mmol/L (22-30); Chloride 105 mmol/L (98-107); Glucose 102 mg/dL (74-99); Magnesium 2.2 mg/dL (1.6-2.3); Non-African American GFR(CKD) >90 (>60 ml/min/1.73 sqM); Sodium 139 mmol/L (137-145); Total Bilirubin 0.4 mg/dL (0.2-1.3); Total Protein 7.1 g/dL (6.3-8.2)
[2023-06-03 04:22] VITALS: RESP 17
--- NOTE | 2023-06-03 04:31 | CT ---
EXAM: CT Head Without Intravenous Contrast CLINICAL HISTORY: ITS.REASON CT Reason: AVITIA/HTN TECHNIQUE: Axial computed tomography images of the head/brain without intravenous contrast. CTDI is 49.2 mGy and DLP is 1153.4 mGy-cm. This CT exam was performed using one or more of the following dose reduction techniques: automated exposure control, adjustment of the mA and/or kV according to patient size, and/or use of iterative reconstruction technique. COMPARISON: No relevant prior studies available. FINDINGS: Brain: No hemorrhage or mass effect. Ventricles: No hydrocephalus. Bones/joints: Unremarkable. Soft tissues: Unremarkable. Sinuses: No air fluid level. Mastoid air cells: Clear. IMPRESSION: No acute hemorrhage, hydrocephalus, or mass effect.
[2023-06-03 05:09] VITALS: BP 124/83; PULSE 63
== END 2023-06-03 04:48 | disposition home or self-care (01) ==
LOC: EC 02:21
DX: R00.2 Palpitations (principal); I10 Essential (primary) hypertension; E07.9 Disorder of thyroid, unspecified; F32.A Depression, unspecified; F41.9 Anxiety disorder, unspecified; Z79.890 Hormone replacement therapy; Z79.899 Other long term (current) drug therapy; Z88.2 Allergy status to sulfonamides
CPT/HCPCS: 36415; 93005; 80053; 83735; 84484; 85025; 85610; 85730; 70450; 99285; 96374; 96375; 96361; J2765; J1170

== ENCOUNTER → 2023-06-12 | Outpatient (CLI) | payer BC ==
[2023-06-12 18:58] LABS: Basophils # (A) 0.07 X 10*3/uL (0.00-0.10); Basophils % (A) 1.5 %; Eosinophils # (A) 0.15 X 10*3/uL (0.04-0.35); Eosinophils % (A) 3.1 %; Lymphocytes # (A) 1.32 X 10*3/uL (0.90-5.00); Lymphocytes % (A) 27.6 %; MCH 31.4 pg (27.0-32.0); MCHC 33.3 g/dL (32.0-37.0); MCV 94.2 FL (80.0-97.0); Mean Platelet Volume 10.4 FL (9.5-12.2); Monocytes % (A) 6.3 %; NRBC Per 100 WBC 0 X 10*3/uL (0.00-0.01); Neutrophils # (A) 2.94 X 10*3/uL (1.80-7.70); Neutrophils % (A) 61.3 %; Platelet Count 259 X 10*3/uL (140-440); RBC 4.46 X 10*6/uL (4.10-5.20); RDW 11.4 % (11.5-14.5); WBC 4.79 X 10*3/uL (4.50-10.00)
[2023-06-12 19:07] LABS: ALT 23 U/L (8-44); AST 18 U/L (13-35); Albumin 4.5 g/dL (3.8-4.9); Albumin/Globulin Ratio 1.73 Ratio (1.60-3.17); Alkaline Phosphatase 71 U/L (41-126); Blood Urea Nitrogen 11.2 mg/dL (9.0-27.0); Calcium 9.5 mg/dL (8.7-10.3); Carbon Dioxide 25.1 mmol/L (21.6-31.8); Chloride 106 mmol/L (96-109); Chol/HDL Ratio 5.23 Ratio; Globulin 2.6 g/dL (1.6-3.3); Glucose 89 mg/dL (70-110); LDL Cholesterol,Calculated 151.4 mg/dL (0.0-131.0); Magnesium 2.2 mg/dL (1.5-2.4); Potassium 4.2 mmol/L (3.5-5.5); Sodium 141 mmol/L (135-145); Total Bilirubin 0.6 mg/dL (0.3-1.2); Total Protein 7.1 g/dL (6.2-8.2)
== END | disposition home or self-care (01) ==
LOC: LABWHC1 12:29
PROVIDERS: ATTEND Internal Medicine Endocrinology, Diabetes & Metabolism
DX: Z00.00 Encounter for general adult medical examination without abnormal findings (principal); Z11.59 Encounter for screening for other viral diseases; E03.8 Other specified hypothyroidism
CPT/HCPCS: 36415; 80053; 80061; 83735; 85025; 86803

== ENCOUNTER → 2023-07-01 | Outpatient (CLI) | payer BC ==
--- NOTE | 2023-07-05 15:43 | MM ---
Reason for Exam: Screening (asymptomatic). Last mammogram was performed 1 year(s) and 3 month(s) ago. Patient History: Menarche at age 15. First Full-Term at age 34. Late child-bearing (after 30). Other cancer. Hormonal Contraceptives for 3 years from age 41 until age 43. Risk Values: Iwona 5 year model risk: 1.2%. NCI Lifetime model risk: 12.8%. Prior Study Comparison: 10/08/2018 Bilateral Screening Mammogram, [facility]. 12/17/2020 Bilateral Screening Mammogram, [facility]. 03/27/2022 Bilateral MG screening mammo w CAD, [facility]. Tissue Density: There are scattered fibroglandular densities. Findings: Analyzed By CAD. The pattern is symmetrical and stable. No significant interval changes. Chronic nodularity is in the outer left breast. No suspicious groups of microcalcifications, spiculated or lobular masses, architectural distortion or other secondary signs of malignancy are mammographically apparent. Overall Assessment: Benign, BI-RAD 2 Management: Screening Mammogram of both breasts in 1 year. A negative mammogram report should not preclude additional follow up of suspicious palpable abnormalities. Patient should continue monthly self breast exam. A clinical breast exam by your physician is recommended on an annual basis and results should be correlated with mammographic findings. Electronically signed and approved by: Addison Arias D.O. Radiologis
== END | disposition home or self-care (01) ==
LOC: RADMAMWWP 14:21
PROVIDERS: ATTEND Internal Medicine
DX: Z12.31 Encounter for screening mammogram for malignant neoplasm of breast (principal)
CPT/HCPCS: 77067

== ENCOUNTER → 2023-07-01 | Outpatient (CLI) | payer BC ==
--- NOTE | 2023-07-01 18:14 | US ---
EXAMINATION TYPE: US thyroid st tissue head/neck DATE OF EXAM: 07/01/2023 COMPARISON: CLINICAL INDICATION: Female, 48 years old with history of E04.2 NONTOXIC MULTINODULAR GOITER; Follow up nodules. GLAND SIZE: Right Lobe: 5.8 x 1.8 x 2.0 cm Overall Parenchyma: heterogenous Left Lobe: 4.9 x 1.5 x 2.4 cm Overall Parenchyma: heterogenous Isthmus Thickness: 0.7 cm NODULES- Multiple nodules seen diffusely throughout bilateral thyroid lobes making it difficult to fo llow previous nodules RIGHT: # of nodules measured on right: 1 1. 1.0 X 0.9 x 0.8 cm, mid mid, solid or almost completely solid, hyperechoic nodule, which is wide r than tall, with smooth margins, without echogenic foci. Prior size: 1.2 x 1.0 x 0.8 cm LEFT: # of nodules measured on left: 1 1. 0.9 X 0.7 x 0.6 cm, lower medial, solid or almost completely solid, hyperechoic nodule, which is wider than tall, with smooth margins, without echogenic foci. Prior size: 1.0 x 0.6 x 0.6 cm ISTHMUS: # of nodules measured in the isthmus: 0 Bilateral neck scanned, no evidence of lymphadenopathy. IMPRESSION: 1. Mildly suspicious nodules. 2017 ACR TI-RADS LEVEL: TR-RADS 3 - Mildly Suspicious: Follow if > 1.5 cm, FNA if > 2.5 cm *Highest TI-RADS level nodule reported
== END | disposition home or self-care (01) ==
LOC: RADUSWWP 14:24
PROVIDERS: ATTEND Internal Medicine Endocrinology, Diabetes & Metabolism
DX: E04.2 Nontoxic multinodular goiter (principal)
CPT/HCPCS: 76536

== ENCOUNTER → 2023-10-23 | Outpatient (CLI) | payer BC ==
[2023-10-23 19:38] LABS: BUN/Creat Ratio 14.29 Ratio (12.00-20.00); Calcium 9.4 mg/dL (8.7-10.3); Carbon Dioxide 22.3 mmol/L (21.6-31.8); Chloride 103 mmol/L (96-109); Glucose 89 mg/dL (70-110); Potassium 4.4 mmol/L (3.5-5.5); Sodium 136 mmol/L (135-145)
== END | disposition home or self-care (01) ==
LOC: LABWHC1 12:36
PROVIDERS: ATTEND Internal Medicine
DX: R03.0 Elevated blood-pressure reading, without diagnosis of hypertension (principal)
CPT/HCPCS: 36415; 80048

== ENCOUNTER → 2024-01-12 | Outpatient (CLI) | payer BC ==
[2024-01-12 18:59] LABS: T4, Free (Free Thyroxine) 0.84 ng/dL (0.80-1.80)
== END | disposition home or self-care (01) ==
LOC: LABWHC1 14:19
PROVIDERS: ATTEND Internal Medicine
DX: E03.9 Hypothyroidism, unspecified (principal)
CPT/HCPCS: 36415; 84439; 84443

== ENCOUNTER → 2024-10-07 | Outpatient (CLI) | payer BC ==
[2024-10-07 15:07] LABS: Basophils # (A) 0.08 X 10*3/uL (0.00-0.10); Basophils % (A) 1.2 %; Eosinophils # (A) 0.16 X 10*3/uL (0.04-0.35); Eosinophils % (A) 2.3 %; HCT 40.8 % (37.2-46.3); HGB 13.6 g/dL (12.0-15.0); Lymphocytes # (A) 1.51 X 10*3/uL (0.90-5.00); Lymphocytes % (A) 21.9 %; MCH 30.8 pg (27.0-32.0); MCHC 33.3 g/dL (32.0-37.0); MCV 92.3 FL (80.0-97.0); Monocytes # (A) 0.44 X 10*3/uL (0.20-1.00); Monocytes % (A) 6.4 %; NRBC Per 100 WBC 0 X 10*3/uL (0.00-0.01); Neutrophils % (A) 67.9 %; Platelet Count 251 X 10*3/uL (140-440); RBC 4.42 X 10*6/uL (4.10-5.20); RDW 11.5 % (11.5-14.5); WBC 6.91 X 10*3/uL (4.50-10.00)
[2024-10-07 16:00] LABS: ALT 31 U/L (8-44); AST 24 U/L (13-35); Albumin 4.3 g/dL (3.8-4.9); Albumin/Globulin Ratio 1.87 Ratio (1.60-3.17); Alkaline Phosphatase 70 U/L (41-126); BUN/Creat Ratio 16.88 Ratio (12.00-20.00); Blood Urea Nitrogen 13.5 mg/dL (9.0-27.0); Calcium 9.3 mg/dL (8.7-10.3); Carbon Dioxide 24.5 mmol/L (21.6-31.8); Chloride 104 mmol/L (96-109); Chol/HDL Ratio 4.84 Ratio; Globulin 2.3 g/dL (1.6-3.3); Glucose 91 mg/dL (70-110); LDL Cholesterol,Calculated 150.9 mg/dL (0.0-131.0); Magnesium 2.1 mg/dL (1.5-2.4); Potassium 4.4 mmol/L (3.5-5.5); Sodium 138 mmol/L (135-145); T4, Free (Free Thyroxine) 0.79 ng/dL (0.80-1.80); Total Bilirubin 0.5 mg/dL (0.3-1.2); Total Protein 6.6 g/dL (6.2-8.2)
== END | disposition home or self-care (01) ==
LOC: LABWHC1 08:35
PROVIDERS: ATTEND Internal Medicine
DX: Z00.00 Encounter for general adult medical examination without abnormal findings (principal); E03.9 Hypothyroidism, unspecified; Z86.39 Personal history of other endocrine, nutritional and metabolic disease
CPT/HCPCS: 36415; 80053; 80061; 82306; 83735; 84439; 84443; 85025

== ENCOUNTER → 2025-01-19 | Outpatient (CLI) | payer BC ==
--- NOTE | 2025-01-19 11:49 | XR ---
EXAMINATION TYPE: XR KUB DATE OF EXAM: 01/19/2025 COMPARISON: NONE HISTORY: R10.30 lower abd pain TECHNIQUE: Single supine KUB image of the abdomen is obtained FINDINGS: Small bowel demonstrates no evidence for dilatation or air fluid levels. Gas and fecal material is seen in non-distended colon. No convincing evidence for pneumoperitoneum. No unusual calcifications. Bilateral tubal ligation clips within the pelvis. The osseous structures are intact. IMPRESSION: Overall nonobstructive bowel gas pattern. [facility], , 01/19/2025 11:46 AM
== END | disposition home or self-care (01) ==
LOC: RADXRMAIN 11:19
PROVIDERS: ATTEND Internal Medicine
DX: R10.30 Lower abdominal pain, unspecified (principal); R14.0 Abdominal distension (gaseous)
CPT/HCPCS: 74018